=== PATIENT | male | born 1990 | race Hispanic/Latino ===

== ENCOUNTER 2018-01-17 10:10 | Emergency (ER) | payer OTHER ==
[2018-01-17 10:59] LABS: BASOPHILS % (AUTO) 0.6 % (0.0-5.0); EOSINOPHILS % (AUTO) 1.9 % (0.0-8.0); HEMATOCRIT 32.3 % (42-54); LYMPHOCYTES % (AUTO) 15.6 % (21.0-51.0); MEAN CORPUSCULAR HEMOGLOBIN 27.9 pg (27.0-33.0); MEAN CORPUSCULAR HGB CONC 33.6 g/dL (32.0-36.0); MEAN CORPUSCULAR VOLUME 83.2 fL (79-99); MONOCYTES % (AUTO) 7.4 % (3.0-13.0); NEUTROPHILS % (AUTO) 74.5 % (40.0-77.0); NUCLEATED RED BLOOD CELLS 0.1 % (0.0-0.19); PLATELET COUNT (AUTO) 240 K/uL (130-400); RED BLOOD CELL COUNT(AUTO) 3.88 MIL/uL (4.50-6.20); RED CELL DISTRIBUTION WIDTH 13.5 % (11.0-15.5); WHITE BLOOD COUNT (AUTO) 9.7 K/uL (4.8-10.8)
[2018-01-17 11:25] LABS: B-TYPE NATRIURETIC PEPTIDE 149 pg/mL (0-100)
[2018-01-17 11:39] LABS: POTASSIUM 4.2 mmol/L (3.5-5.1)
[2018-01-17 11:44] LABS: ALBUMIN 2.8 g/dL (3.5-5.0); BILIRUBIN,DIRECT 0.1 mg/dL (0.0-0.3); BILIRUBIN,TOTAL 0.5 mg/dL (0.2-1.0); TOTAL PROTEIN, SERUM 7.2 g/dL (6.0-8.3)
[2018-01-17 12:07] LABS: APPEARANCE,URINE Clear (CLEAR); BILIRUBIN,URINE Negative (NEGATIVE); COLOR,URINE Yellow (YELLOW); GLUCOSE, URINE (UA) Negative (NEGATIVE); KETONES,URINE Trace mg/dL (NEGATIVE); LEUKOCYTE ESTERASE ,URINE Negative (NEGATIVE); NITRATE,URINE Negative (NEGATIVE); OCCULT BLOOD,URINE Trace (NEGATIVE); PH,URINE 6.5 (5.0-8.0); PROTEIN,URINE Negative (NEGATIVE); UROBILINOGEN,URINE 0.2 mg/dL (0.2-1.0)
[2018-01-17 12:14] LABS: AMPHET/METH SCREEN,URINE NEGATIVE (NEGATIVE); BARBITURATE SCREEN, URINE NEGATIVE (NEGATIVE); BENZODIAZEPINES SCREEN,URINE NEGATIVE (NEGATIVE); CANNABINOID SCREEN,URINE NEGATIVE (NEGATIVE); COCAINE SCREEN,URINE NEGATIVE (NEGATIVE); OPIATE SCREEN,URINE NEGATIVE (NEGATIVE); PHENCYCLIDINE SCREEN,URINE NEGATIVE (NEGATIVE)
[2018-01-17 12:24] LABS: RBC,URINE 0-1 /HPF (0-1); WBC,URINE 0-1 /HPF (0-1)
[2018-01-17 12:25] LABS: BACTERIA,URINE Rare /HPF (None Seen)
[2018-01-17 12:26] LABS: SQUAMOUS EPITHELIAL CELL,UR Rare /HPF (0-2)
[2018-01-17 13:25] LABS: CREATINE KINASE MB < 0.5 ng/mL (0.5-3.6); CREATINE KINASE, TOTAL 62 U/L (21-232)
== END 2018-01-17 15:16 | disposition home or self-care (01) ==
LOC: EDH 10:10
DX: R60.0 Localized edema (principal); R63.4 Abnormal weight loss; R61 Generalized hyperhidrosis; I38 Endocarditis, valve unspecified
CPT/HCPCS: 36415; 71046; 74176; 80048; 80076; 80305; 81001; 82550; 82553; 83880; 84484; 85025; 93005; 93970

== ENCOUNTER 2018-02-03 10:00 | Inpatient (IN) | payer OTHER ==
[~2018-02-03] VITALS: Ht 177.8 cm; Wt 99.2 kg
[2018-02-03] MEDS: CEFUROXIME SODIUM 1.5 GM VIAL IVP SCH (10:30)
[2018-02-03] MEDS ORDERED: WATER FOR INJECTION,STERILE 20 ML VIAL IJ SCH (11:15)
[2018-02-03 12:01] VITALS: BP 129/60
[2018-02-03 12:06] LABS: BASOPHILS % (AUTO) 0.3 % (0.0-5.0); EOSINOPHILS % (AUTO) 2.1 % (0.0-8.0); HEMATOCRIT 38.8 % (42-54); LYMPHOCYTES % (AUTO) 15.3 % (21.0-51.0); MEAN CORPUSCULAR HEMOGLOBIN 28.5 pg (27.0-33.0); MEAN CORPUSCULAR HGB CONC 33.6 g/dL (32.0-36.0); MEAN CORPUSCULAR VOLUME 84.7 fL (79-99); MONOCYTES % (AUTO) 8.9 % (3.0-13.0); NEUTROPHILS % (AUTO) 73.4 % (40.0-77.0); PLATELET COUNT (AUTO) 204 K/uL (130-400); RED BLOOD CELL COUNT(AUTO) 4.58 MIL/uL (4.50-6.20); RED CELL DISTRIBUTION WIDTH 15.2 % (11.0-15.5); WHITE BLOOD COUNT (AUTO) 10.8 K/uL (4.8-10.8)
[2018-02-03 12:14] LABS: HEMOGLOBIN A1C 5.2 % (4.0-6.0)
[2018-02-03 12:18] LABS: PARTIAL THROMBOPLASTIN TIME 31.1 SEC (26.3-35.5); PROTHROMBIN TIME 10.5 SEC (9.6-11.6)
[2018-02-03 12:23] LABS: ALBUMIN 3.6 g/dL (3.5-5.0); BILIRUBIN,TOTAL 0.5 mg/dL (0.2-1.0); CREATININE 0.9 mg/dL (0.5-1.5); POTASSIUM 4.6 mmol/L (3.5-5.1)
[2018-02-04] VITALS (16 sets, daily range): BP systolic 36–154; BP diastolic 24–58
[2018-02-04] MEDS ORDERED: CEFUROXIME 1.5GM+NS 100ML 100 ML IV SCH ×2 (06:00→23:45)
[2018-02-04] MEDS ORDERED: SODIUM CHLORIDE 0.9% 1000ML 1,000 ML IV ONE ×2 (10:28→15:24)
[2018-02-04] MEDS ORDERED: THROMBIN-JMI 5000 UNIT/VIAL TP ONE ×2 (11:15→22:25)
[2018-02-04] MEDS ORDERED: POTASSIUM CHLORIDE 20MEQ/100ML 100 ML IV ONE (11:16)
[2018-02-04] MEDS ORDERED: DELNIDO FORMULA 2 BAG IV ONE (11:16)
[2018-02-04] MEDS ORDERED: NOREPINEPHRINE BITARTRATE 1 MG/1 ML ML IV ONE ×2 (11:21→12:29)
[2018-02-04] MEDS ORDERED: CALCIUM CHLORIDE 100 MG/ML 10 ML SYG IVP ONE ×2 (12:00)
[2018-02-04] MEDS ORDERED: SODIUM BICARB 8.4% 50ML SYRINGE IVP ONE ×2 (12:00)
[2018-02-04] MEDS ORDERED: ALBUMIN (HUMAN) 25% 50 ML IV ONE (12:00)
[2018-02-04] MEDS ORDERED: HEPARIN SODIUM 1000UNIT/ML 10ML VIAL IV ONE ×2 (12:00)
[2018-02-04] MEDS ORDERED: MANNITOL 25% 50ML VIAL IV ONE (12:00)
[2018-02-04] MEDS ORDERED: GLYCOPYRROLATE 0.2 MG/ML 5 ML VIAL ONE (12:28)
[2018-02-04] MEDS ORDERED: PROTAMINE SULFATE 10 MG/ML 25ML VIAL IV ONE (12:28)
[2018-02-04] MEDS ORDERED: LIDOCAINE PF 2% 5ML ABBOJECT ONE (12:28)
[2018-02-04] MEDS ORDERED: ESMOLOL HCL 10 MG/ML 10 ML VIAL ONE (12:28)
[2018-02-04] MEDS ORDERED: HEPARIN SODIUM 1000UNIT/ML 10ML VIAL ONE (12:29)
[2018-02-04] MEDS ORDERED: PROPOFOL 10 MG/ML 20ML VIAL IV ONE (12:29)
[2018-02-04] MEDS ORDERED: MIDAZOLAM HCL 1 MG/ML 5ML VIAL ONE ×3 (12:29→22:32)
[2018-02-04] MEDS ORDERED: MILRINONE-D5W 20 MG/100 ML 0 ML IV ONE (12:29)
[2018-02-04] MEDS ORDERED: AMINOCAPROIC ACID 250 MG/ML 20 ML VIAL IV ONE (12:29)
[2018-02-04] MEDS ORDERED: ROCURONIUM BROMIDE 10MG/1ML 5ML VL ONE (12:29)
[2018-02-04] MEDS ORDERED: EPINEPHRINE 1 MG/ML AMPULE ONE (12:29)
[2018-02-04] MEDS ORDERED: NEOSTIGMINE 5MG/5ML SYR IV ONE (12:29)
[2018-02-04 13:04] LABS: ABG BASE EXCESS -0.4 mmol/L (-2.0-3.0); ABG HCO3 23.3 mmol/L (21.0-28.0); ABG OXYGEN SATURATION 99.7 % (95.0-99.0); ABG PCO2 35 mmHg (35-48)
[2018-02-04] MEDS: CEFUROXIME SODIUM 1.5 GM VIAL IVP SCH ×2 (13:30→23:45)
[2018-02-04 14:50] LABS: ABG BASE EXCESS -3.3 mmol/L (-2.0-3.0); ABG HCO3 22.1 mmol/L (21.0-28.0); ABG PCO2 41 mmHg (35-48)
[2018-02-04] MEDS ORDERED: METHYLPREDNISOLONE SOD SUCC 1,000 MG/8 ML ML IV ONE (15:09)
[2018-02-04] MEDS ORDERED: OCTYL 2-CYANOACRYLATE 1 EACH TP ONE (15:18)
[2018-02-04] MEDS ORDERED: BACITRACIN 50,000 UNIT VIAL ONE (15:19)
[2018-02-04 15:22] LABS: ABG BASE EXCESS -5.1 mmol/L (-2.0-3.0); ABG HCO3 20.4 mmol/L (21.0-28.0); ABG OXYGEN SATURATION 99.4 % (95.0-99.0); ABG PCO2 39 mmHg (35-48)
[2018-02-04] MEDS ORDERED: SODIUM CHLORIDE 0.9% 500ML 500 ML IV SCH (15:42)
[2018-02-04] MEDS ORDERED: HYDROCODONE/ACETAMINOPHEN 5/325 MG TAB PO PRN (15:45)
[2018-02-04] MEDS ORDERED: NITROGLYCERIN 50 MG/D5% WATER 250 BOT IV SCH (15:45)
[2018-02-04] MEDS ORDERED: MAGNESIUM 2GM PREMIX 50ML 50 ML IV PRN (15:45)
[2018-02-04] MEDS ORDERED: EPINEPHRINE 2 MG in SODIUM CHLORIDE 0.9% 250 ML IV PRN (15:45)
[2018-02-04] MEDS ORDERED: POTASSIUM PHOS 15 mMOL+NS250ML 250 ML IV PRN (15:45)
[2018-02-04] MEDS ORDERED: CALCIUM GLUCONATE 1 GM in SODIUM CHLORIDE 0.9% 50 ML IV PRN (15:45)
[2018-02-04] MEDS ORDERED: GLUCAGON 1MG KIT 1 MG ML IM PRN (15:45)
[2018-02-04] MEDS ORDERED: ACETAMINOPHEN 650 MG SUPPOSITORY RC PRN (15:45)
[2018-02-04] MEDS ORDERED: AMINOCAPROIC ACID 15,000 MG in SODIUM CHLORIDE 0.9% 250 ML IV SCH (15:45)
[2018-02-04] MEDS ORDERED: PROPOFOL 1000 MG/100 ML 100 ML IV PRN (15:45)
[2018-02-04] MEDS ORDERED: ALBUMIN (HUMAN) 5% 250 ML IV PRN (15:45)
[2018-02-04] MEDS ORDERED: SODIUM BICARB 8.4% 50ML SYRINGE IV PRN (15:45)
[2018-02-04] MEDS ORDERED: SODIUM CHLORIDE 0.9% 10 ML VIAL IVP PRN (15:45)
[2018-02-04] MEDS ORDERED: INSULIN REGULAR, HUMAN 3ML 100 UNIT in SODIUM CHLORIDE 0.9% 99 ML IV SCH ×2 (15:45)
[2018-02-04] MEDS ORDERED: SODIUM CHLORIDE 0.9% 1000ML 1,000 ML IV SCH (15:45)
[2018-02-04] MEDS ORDERED: SODIUM CHLORIDE 0.9% 250 ML IV PRN (15:45)
[2018-02-04] MEDS ORDERED: MORPHINE SULFATE 4 MG/1ML SYG IV PRN (15:45)
[2018-02-04] MEDS ORDERED: NICARDIPINE HCL 100 MG in SODIUM CHLORIDE 0.9% 100 ML IV PRN (15:45)
[2018-02-04] MEDS ORDERED: ROPIVACAINE HCL/PF 0.5% 100ML BOTTLE IV ONE (16:00)
[2018-02-04] MEDS ORDERED: FENTANYL CITRATE PF 50 MCG/1 ML 5ML AMP IV ONE (16:22)
[2018-02-04] MEDS ORDERED: MORPHINE SULFATE 10 MG/ML 1ML SYG ONE (16:22)
[2018-02-04 16:27] LABS: ABG HCO3 21.8 mmol/L (21.0-28.0); ABG OXYGEN SATURATION 99.4 % (95.0-99.0); ABG PCO2 34 mmHg (35-48)
[2018-02-04] MEDS: AMBU PUMP 1 EACH EACH MISC SCH (17:23)
[2018-02-04 17:24] LABS: HEMATOCRIT 34.8 % (42-54); MEAN CORPUSCULAR HEMOGLOBIN 27.5 pg (27.0-33.0); MEAN CORPUSCULAR HGB CONC 32.6 g/dL (32.0-36.0); MEAN CORPUSCULAR VOLUME 84.4 fL (79-99); PLATELET COUNT (AUTO) 145 K/uL (130-400); RED BLOOD CELL COUNT(AUTO) 4.13 MIL/uL (4.50-6.20); RED CELL DISTRIBUTION WIDTH 14.8 % (11.0-15.5); WHITE BLOOD COUNT (AUTO) 28.2 K/uL (4.8-10.8)
[2018-02-04] MEDS: MORPHINE SULFATE 4 MG/1ML SYG IV PRN (17:33)
[2018-02-04 17:35] LABS: CREATININE 1.1 mg/dL (0.5-1.5); MAGNESIUM 2.1 mg/dL (1.80-2.40); PHOSPHORUS 4.1 mg/dL (2.5-4.9); POTASSIUM 3.2 mmol/L (3.5-5.1)
[2018-02-04 17:39] LABS: ABG BASE EXCESS -4.4 mmol/L (-2.0-3.0); ABG HCO3 20.8 mmol/L (21.0-28.0); ABG OXYGEN SATURATION 99.2 % (95.0-99.0); ABG PCO2 39 mmHg (35-48)
[2018-02-04] MEDS: POTASSIUM CHLORIDE 20MEQ/100ML 100 ML IV PRN ×3 (18:03→23:25)
[2018-02-04] MEDS ORDERED: SODIUM BICARB 50MEQ 50ML VIAL ONE ×5 (19:10→22:42)
[2018-02-04 20:56] LABS: ABG BASE EXCESS -2.4 mmol/L (-2.0-3.0); ABG PCO2 37 mmHg (35-48)
[2018-02-04 21:37] LABS: ABG BASE EXCESS -2.3 mmol/L (-2.0-3.0); ABG HCO3 22.1 mmol/L (21.0-28.0); ABG OXYGEN SATURATION 98.3 % (95.0-99.0); ABG PCO2 37 mmHg (35-48)
[2018-02-04 21:55] LABS: HEMATOCRIT 33.1 % (42-54); LYMPHOCYTES % (AUTO) 5.1 % (21.0-51.0); MEAN CORPUSCULAR HEMOGLOBIN 27.5 pg (27.0-33.0); MEAN CORPUSCULAR HGB CONC 32.6 g/dL (32.0-36.0); MEAN CORPUSCULAR VOLUME 84.2 fL (79-99); MONOCYTES % (AUTO) 2.4 % (3.0-13.0); NEUTROPHILS % (AUTO) 92.5 % (40.0-77.0); PLATELET COUNT (AUTO) 145 K/uL (130-400); RED BLOOD CELL COUNT(AUTO) 3.92 MIL/uL (4.50-6.20); RED CELL DISTRIBUTION WIDTH 14.8 % (11.0-15.5); WHITE BLOOD COUNT (AUTO) 21.7 K/uL (4.8-10.8)
[2018-02-04 22:07] LABS: CREATININE 1.5 mg/dL (0.5-1.5); INR 1.15 (0.85-1.15); PARTIAL THROMBOPLASTIN TIME 30.3 SEC (26.3-35.5); POTASSIUM 3.8 mmol/L (3.5-5.1)
[2018-02-04] MEDS ORDERED: VASOPRESSIN 20 UNITS/ML 1ML VIAL ONE (22:10)
[2018-02-04] MEDS ORDERED: SODIUM CHLORIDE 0.9% 100 ML IV ONE (22:10)
[2018-02-04 22:11] LABS: BILIRUBIN,TOTAL 1.3 mg/dL (0.2-1.0); TOTAL PROTEIN, SERUM 6.2 g/dL (6.0-8.3)
[2018-02-04] MEDS ORDERED: HYDROCORTISONE SOD SUCCINATE 100 MG/2 ML VIAL ONE ×2 (22:14)
[2018-02-04] MEDS ORDERED: WATER IV PRN ×2 (22:15→22:30)
[2018-02-04] MEDS ORDERED: VASOPRESSIN IV PRN ×2 (22:15→22:30)
[2018-02-04] MEDS ORDERED: HYDROCORTISONE SOD SUCCINATE 100 MG/2 ML VIAL IV SCH (22:15)
[2018-02-04] MEDS ORDERED: DEXTROSE 5% IV PRN ×2 (22:15→22:30)
[2018-02-04] MEDS ORDERED: DELNIDO FORMULA 1 BAG IV ONE (22:25)
[2018-02-04 23:02] LABS: ABG BASE EXCESS -4.7 mmol/L (-2.0-3.0); ABG HCO3 21.2 mmol/L (21.0-28.0); ABG OXYGEN SATURATION 98.9 % (95.0-99.0); ABG PCO2 42 mmHg (35-48)
[2018-02-04 23:39] LABS: ABG BASE EXCESS -20.5 mmol/L (-2.0-3.0); ABG HCO3 9.2 mmol/L (21.0-28.0); ABG PCO2 36 mmHg (35-48)
[2018-02-04 23:53] LABS: ABG BASE EXCESS -8.4 mmol/L (-2.0-3.0); ABG HCO3 15.7 mmol/L (21.0-28.0); ABG OXYGEN SATURATION 98.9 % (95.0-99.0); ABG PCO2 28 mmHg (35-48)
[2018-02-05] VITALS (40 sets, daily range): BP systolic 66–129; BP diastolic 37–76
[2018-02-05] MEDS ORDERED: OCTYL 2-CYANOACRYLATE 1 EACH TP ONE (00:02)
[2018-02-05] MEDS ORDERED: BACITRACIN 50,000 UNIT VIAL ONE ×2 (00:02→14:05)
[2018-02-05] MEDS ORDERED: ROCURONIUM BROMIDE 10MG/1ML 5ML VL ONE ×2 (00:10→03:07)
[2018-02-05 00:17] LABS: ABG BASE EXCESS -15.8 mmol/L (-2.0-3.0); ABG HCO3 13.2 mmol/L (21.0-28.0); ABG OXYGEN SATURATION 99.3 % (95.0-99.0); ABG PCO2 43 mmHg (35-48)
[2018-02-05] MEDS ORDERED: SODIUM BICARB 8.4% 50ML SYRINGE ONE ×5 (00:20→02:42)
[2018-02-05] MEDS ORDERED: PROTAMINE SULFATE 10 MG/ML 5 ML VIAL ONE ×2 (00:35→05:26)
[2018-02-05 00:46] LABS: ABG BASE EXCESS 7.4 mmol/L (-2.0-3.0); ABG HCO3 35.8 mmol/L (21.0-28.0); ABG OXYGEN SATURATION 98.8 % (95.0-99.0); ABG PCO2 71 mmHg (35-48)
[2018-02-05 00:51] LABS: ABG BASE EXCESS -11.5 mmol/L (-2.0-3.0); ABG HCO3 14.7 mmol/L (21.0-28.0); ABG OXYGEN SATURATION 99.1 % (95.0-99.0); ABG PCO2 34 mmHg (35-48)
[2018-02-05] MEDS ORDERED: MAGNESIUM SULFATE 1 GM/2 ML VIAL ONE (00:54)
[2018-02-05] MEDS ORDERED: EPHEDRINE SULFATE 50 MG/ML AMPULE ONE (01:27)
[2018-02-05] MEDS ORDERED: NOREPINEPHRINE BITARTRATE 1 MG/1 ML ML IV ONE (01:28)
[2018-02-05 01:30] LABS: ABG BASE EXCESS 7.3 mmol/L (-2.0-3.0); ABG HCO3 32.2 mmol/L (21.0-28.0); ABG OXYGEN SATURATION 98.6 % (95.0-99.0); ABG PCO2 47 mmHg (35-48)
[2018-02-05] MEDS: CEFUROXIME SODIUM 1.5 GM VIAL IVP SCH ×2 (01:30→11:14)
[2018-02-05 01:45] LABS: ABG BASE EXCESS -10.7 mmol/L (-2.0-3.0); ABG HCO3 17.8 mmol/L (21.0-28.0); ABG OXYGEN SATURATION 98.9 % (95.0-99.0); ABG PCO2 51 mmHg (35-48)
[2018-02-05] MEDS ORDERED: FENTANYL CITRATE PF 50 MCG/1 ML 5ML AMP IV ONE (01:55)
[2018-02-05] MEDS ORDERED: MORPHINE SULFATE 10 MG/ML 1ML SYG ONE (01:55)
[2018-02-05] MEDS ORDERED: CEFUROXIME SODIUM 1.5 GM VIAL ONE ×2 (02:06→14:06)
[2018-02-05 02:33] LABS: ABG BASE EXCESS -9.3 mmol/L (-2.0-3.0); ABG HCO3 18.3 mmol/L (21.0-28.0); ABG OXYGEN SATURATION 89.6 % (95.0-99.0); ABG PCO2 47 mmHg (35-48)
[2018-02-05] MEDS ORDERED: SODIUM BICARB 50MEQ 50ML VIAL ONE ×2 (03:04→03:06)
[2018-02-05] MEDS ORDERED: VASOPRESSIN 20 UNITS/ML 1ML VIAL ONE (03:06)
[2018-02-05] MEDS ORDERED: MILRINONE-D5W 20 MG/100 ML 100 ML IV ONE (03:06)
[2018-02-05] MEDS ORDERED: ESMOLOL HCL 10 MG/ML 10 ML VIAL ONE (03:06)
[2018-02-05 03:12] LABS: ABG BASE EXCESS 5.1 mmol/L (-2.0-3.0); ABG HCO3 29.8 mmol/L (21.0-28.0); ABG OXYGEN SATURATION 96.7 % (95.0-99.0); ABG PCO2 45 mmHg (35-48)
[2018-02-05 03:47] LABS: ABG BASE EXCESS -1.1 mmol/L (-2.0-3.0); ABG HCO3 24.8 mmol/L (21.0-28.0); ABG PCO2 47 mmHg (35-48)
[2018-02-05 04:01] LABS: HEMATOCRIT 28.4 % (42-54); MEAN CORPUSCULAR HEMOGLOBIN 28.6 pg (27.0-33.0); MEAN CORPUSCULAR HGB CONC 33.2 g/dL (32.0-36.0); MEAN CORPUSCULAR VOLUME 86.2 fL (79-99); NUCLEATED RED BLOOD CELLS 0.1 % (0.0-0.19); PLATELET COUNT (AUTO) 144 K/uL (130-400); RED CELL DISTRIBUTION WIDTH 15.3 % (11.0-15.5); WHITE BLOOD COUNT (AUTO) 26.1 K/uL (4.8-10.8)
[2018-02-05 04:08] LABS: INR 1.62 (0.85-1.15); PARTIAL THROMBOPLASTIN TIME 49.9 SEC (26.3-35.5); PROTHROMBIN TIME 16.8 SEC (9.6-11.6)
[2018-02-05 04:23] LABS: CREATININE 2.6 mg/dL (0.5-1.5); MAGNESIUM 3.2 mg/dL (1.80-2.40); PHOSPHORUS 3.9 mg/dL (2.5-4.9); POTASSIUM 3.2 mmol/L (3.5-5.1)
[2018-02-05] MEDS: POTASSIUM CHLORIDE 20MEQ/100ML 100 ML IV PRN ×2 (04:30→05:42)
[2018-02-05] MEDS: EPINEPHRINE 8 MG in SODIUM CHLORIDE 0.9% 250 ML IV PRN ×2 (04:31→20:18)
[2018-02-05] MEDS: NOREPINEPHRINE 4MG/NS 250ML 250 ML IV PRN ×3 (04:34→23:11)
[2018-02-05] MEDS ORDERED: PROTAMINE SULFATE 10 MG/ML 5 ML VIAL IVP STA (05:20)
[2018-02-05] MEDS ORDERED: VASOPRESSIN IV PRN (08:00)
[2018-02-05] MEDS ORDERED: WATER IV PRN (08:00)
[2018-02-05] MEDS ORDERED: DEXTROSE 5% IV PRN (08:00)
[2018-02-05] MEDS ORDERED: ALBUMIN (HUMAN) 5% 250 ML IV ONE (08:03)
[2018-02-05 08:06] LABS: ABG BASE EXCESS 4.2 mmol/L (-2.0-3.0); ABG HCO3 29.1 mmol/L (21.0-28.0); ABG OXYGEN SATURATION 99.8 % (95.0-99.0); ABG PCO2 44 mmHg (35-48)
[2018-02-05 08:09] LABS: HEMATOCRIT 27.6 % (42-54); MEAN CORPUSCULAR HEMOGLOBIN 28.3 pg (27.0-33.0); MEAN CORPUSCULAR HGB CONC 33.2 g/dL (32.0-36.0); MEAN CORPUSCULAR VOLUME 85.4 fL (79-99); NUCLEATED RED BLOOD CELLS 0.3 % (0.0-0.19); PLATELET COUNT (AUTO) 136 K/uL (130-400); RED BLOOD CELL COUNT(AUTO) 3.23 MIL/uL (4.50-6.20); RED CELL DISTRIBUTION WIDTH 15.4 % (11.0-15.5)
[2018-02-05 08:26] LABS: CREATININE 3.2 mg/dL (0.5-1.5); POTASSIUM 3.5 mmol/L (3.5-5.1)
[2018-02-05 08:29] LABS: INR 1.56 (0.85-1.15); PROTHROMBIN TIME 16.2 SEC (9.6-11.6)
[2018-02-05] MEDS ORDERED: PANTOPRAZOLE SODIUM 40 MG TABLET.DR PO SCH (09:00)
[2018-02-05] MEDS ORDERED: PROTAMINE SULFATE 10 MG/ML 5 ML VIAL IVP SCH (09:15)
[2018-02-05] MEDS ORDERED: DESMOPRESSIN ACETATE IJ STA (09:37)
[2018-02-05] MEDS ORDERED: SODIUM CHLORIDE 0.9% IJ STA (09:37)
[2018-02-05] MEDS ORDERED: ZOSYN 3.375GM+NS 50ML 50 ML IV SCH (09:41)
[2018-02-05] MEDS: CALCIUM GLUCONATE 1 GM in SODIUM CHLORIDE 0.9% 50 ML IV SCH (09:44)
[2018-02-05] MEDS ORDERED: DESMOPRESSIN ACETATE IJ SCH (09:49)
[2018-02-05] MEDS ORDERED: SODIUM CHLORIDE 0.9% IJ SCH (09:49)
[2018-02-05] MEDS ORDERED: LEVOFLOXACIN 250 MG/D5W 50ML 50 ML IV SCH (10:00)
[2018-02-05] MEDS ORDERED: SODIUM CHLORIDE 0.9% IV SCH (10:00)
[2018-02-05] MEDS ORDERED: DESMOPRESSIN ACETATE IV SCH (10:00)
[2018-02-05] MEDS ORDERED: FUROSEMIDE 10 MG/ML 10ML VIAL IVP SCH (10:30)
[2018-02-05] MEDS: FUROSEMIDE 100 MG in SODIUM CHLORIDE 0.9% 90 ML IV SCH ×3 (10:32→20:17)
[2018-02-05 12:10] LABS: ABG BASE EXCESS 6.8 mmol/L (-2.0-3.0); ABG HCO3 30.8 mmol/L (21.0-28.0); ABG OXYGEN SATURATION 99.5 % (95.0-99.0); ABG PCO2 41 mmHg (35-48)
[2018-02-05 12:18] LABS: HEMATOCRIT 24.5 % (42-54); MEAN CORPUSCULAR HEMOGLOBIN 29.1 pg (27.0-33.0); MEAN CORPUSCULAR HGB CONC 34.4 g/dL (32.0-36.0); MEAN CORPUSCULAR VOLUME 84.8 fL (79-99); NUCLEATED RED BLOOD CELLS 0.2 % (0.0-0.19); PLATELET COUNT (AUTO) 269 K/uL (130-400); RED BLOOD CELL COUNT(AUTO) 2.89 MIL/uL (4.50-6.20); RED CELL DISTRIBUTION WIDTH 14.3 % (11.0-15.5); WHITE BLOOD COUNT (AUTO) 12.7 K/uL (4.8-10.8)
[2018-02-05 12:31] LABS: CREATININE 3.8 mg/dL (0.5-1.5); MAGNESIUM 2.8 mg/dL (1.80-2.40); POTASSIUM 3.9 mmol/L (3.5-5.1)
[2018-02-05 12:35] LABS: INR 1.31 (0.85-1.15); PARTIAL THROMBOPLASTIN TIME 29.5 SEC (26.3-35.5); PROTHROMBIN TIME 13.7 SEC (9.6-11.6)
[2018-02-05] MEDS: AMBU PUMP 1 EACH EACH MISC SCH (12:39)
[2018-02-05] MEDS ORDERED: KETAMINE HCL 100 MG/ML 5ML VIAL IJ ONE (13:35)
[2018-02-05] MEDS ORDERED: HEPARIN SODIUM 1000UNIT/ML 10ML VIAL ONE (13:44)
[2018-02-05] MEDS ORDERED: THROMBIN-JMI 5000 UNIT/VIAL TP ONE (13:44)
[2018-02-05 13:57] LABS: ABG BASE EXCESS 8.6 mmol/L (-2.0-3.0); ABG HCO3 32.5 mmol/L (21.0-28.0); ABG OXYGEN SATURATION 98.9 % (95.0-99.0); ABG PCO2 43 mmHg (35-48)
[2018-02-05] MEDS ORDERED: MIDAZOLAM HCL 1 MG/ML 2ML VIAL ONE (14:10)
[2018-02-05] MEDS ORDERED: COAGULATION FACTOR VIIA RECOMB 1 MG VIAL IV SCH (15:30)
[2018-02-05] MEDS ORDERED: PHARMACY COMMUNICATION MISC SCH (16:15)
[2018-02-05] MEDS ORDERED: CEFEPIME 1GM+NS 50ML 50 ML IV SCH (16:15)
[2018-02-05 16:58] LABS: ABG HCO3 27.3 mmol/L (21.0-28.0); ABG OXYGEN SATURATION 98.2 % (95.0-99.0); ABG PCO2 37 mmHg (35-48)
[2018-02-05 17:04] LABS: HEMATOCRIT 31.7 % (42-54); MEAN CORPUSCULAR HEMOGLOBIN 28.7 pg (27.0-33.0); MEAN CORPUSCULAR HGB CONC 34.8 g/dL (32.0-36.0); MEAN CORPUSCULAR VOLUME 82.5 fL (79-99); NUCLEATED RED BLOOD CELLS 0.2 % (0.0-0.19); PLATELET COUNT (AUTO) 200 K/uL (130-400); RED BLOOD CELL COUNT(AUTO) 3.84 MIL/uL (4.50-6.20); RED CELL DISTRIBUTION WIDTH 16.3 % (11.0-15.5)
[2018-02-05 17:11] LABS: CREATININE 4.4 mg/dL (0.5-1.5); MAGNESIUM 2.6 mg/dL (1.80-2.40); POTASSIUM 4.9 mmol/L (3.5-5.1)
[2018-02-05] MEDS: CEFEPIME HCL 1 GM VIAL IVP SCH (17:53)
[2018-02-05] MEDS: LINEZOLID 600 MG/ISO-OSM 300 ML IV SCH (18:10)
[2018-02-05] MEDS ORDERED: METOLAZONE 2.5 MG TABLET PO SCH (19:00)
[2018-02-05] MEDS ORDERED: MANNITOL 25% 50ML VIAL IV SCH (19:00)
[2018-02-05] MEDS: ACETAMINOPHEN 325 MG TAB PO PRN (22:28)
[2018-02-05] MEDS ORDERED: PROPOFOL 1000 MG/100 ML IV PRN (22:45)
[2018-02-06] VITALS (28 sets, daily range): BP systolic 90–138; BP diastolic 26–72
[2018-02-06] MEDS ORDERED: PROPOFOL 1000 MG/100 ML 100 ML IV ONE (00:17)
[2018-02-06 04:20] LABS: BASOPHILS % (AUTO) 0.1 % (0.0-5.0); HEMATOCRIT 30.4 % (42-54); LYMPHOCYTES % (AUTO) 9.3 % (21.0-51.0); MEAN CORPUSCULAR HEMOGLOBIN 29.6 pg (27.0-33.0); MEAN CORPUSCULAR HGB CONC 35.5 g/dL (32.0-36.0); MEAN CORPUSCULAR VOLUME 83.6 fL (79-99); MONOCYTES % (AUTO) 6.1 % (3.0-13.0); NEUTROPHILS % (AUTO) 84.5 % (40.0-77.0); NUCLEATED RED BLOOD CELLS 0.1 % (0.0-0.19); PLATELET COUNT (AUTO) 126 K/uL (130-400); RED BLOOD CELL COUNT(AUTO) 3.63 MIL/uL (4.50-6.20); RED CELL DISTRIBUTION WIDTH 16.9 % (11.0-15.5); WHITE BLOOD COUNT (AUTO) 22.6 K/uL (4.8-10.8)
[2018-02-06] MEDS: CEFEPIME HCL 1 GM VIAL IVP SCH ×2 (04:23→18:33)
[2018-02-06 04:30] LABS: INR 1.33 (0.85-1.15); PARTIAL THROMBOPLASTIN TIME 28.9 SEC (26.3-35.5); PROTHROMBIN TIME 13.9 SEC (9.6-11.6)
[2018-02-06 05:06] LABS: ABG BASE EXCESS 4.2 mmol/L (-2.0-3.0); ABG HCO3 28.2 mmol/L (21.0-28.0); ABG OXYGEN SATURATION 98.9 % (95.0-99.0); ABG PCO2 40 mmHg (35-48)
[2018-02-06 05:36] LABS: CREATININE 6.4 mg/dL (0.5-1.5); MAGNESIUM 2.4 mg/dL (1.80-2.40); PHOSPHORUS 3.9 mg/dL (2.5-4.9)
[2018-02-06 05:41] LABS: POTASSIUM 6.2 mmol/L (3.5-5.1)
[2018-02-06] MEDS: LINEZOLID 600 MG/ISO-OSM 300 ML IV SCH ×2 (05:44→18:33)
[2018-02-06] MEDS ORDERED: CALCIUM GLUCONATE 1 GM in DEXTROSE 5%-WATER 50 ML IV SCH (06:41)
[2018-02-06] MEDS ORDERED: SODIUM BICARB 8.4% 50ML SYRINGE IVP SCH (06:41)
[2018-02-06] MEDS ORDERED: CALCIUM GLUCONATE 1 GM in SODIUM CHLORIDE 0.9% 50 ML IV SCH (06:41)
[2018-02-06] MEDS ORDERED: SODIUM BICARB 50MEQ 50ML VIAL ONE ×2 (06:55→22:55)
[2018-02-06] MEDS: DEXTROSE 50%-WATER 25 GM/50 ML VIAL IV SCH (06:57)
[2018-02-06] MEDS: CALCIUM GLUCONATE 1 GM in SODIUM CHLORIDE 0.9% 50 ML IV SCH (06:59)
[2018-02-06] MEDS ORDERED: METOLAZONE 2.5 MG TABLET PO ONE (07:00)
[2018-02-06] MEDS: FUROSEMIDE 100 MG in SODIUM CHLORIDE 0.9% 90 ML IV SCH (07:15)
[2018-02-06] MEDS: NOREPINEPHRINE 4MG/NS 250ML 250 ML IV PRN ×2 (07:16→18:34)
[2018-02-06] MEDS: INSULIN HUMULIN R 100 UNIT/ML 3ML IV SCH (07:18)
[2018-02-06] MEDS: FAMOTIDINE/PF 20 MG/2 ML VIAL IV SCH (09:16)
[2018-02-06 10:06] LABS: APPEARANCE,URINE Clear (CLEAR); BILIRUBIN,URINE Negative (NEGATIVE); GLUCOSE, URINE (UA) 250 mg/dL (NEGATIVE); KETONES,URINE Negative (NEGATIVE); LEUKOCYTE ESTERASE ,URINE Trace (NEGATIVE); NITRATE,URINE Negative (NEGATIVE); OCCULT BLOOD,URINE Large (NEGATIVE); PH,URINE >=9.0 (5.0-8.0); PROTEIN,URINE 300 (NEGATIVE)
[2018-02-06 10:08] LABS: COLOR,URINE Orange (YELLOW)
[2018-02-06 10:20] LABS: BACTERIA,URINE Rare /HPF (None Seen); RBC,URINE 0-1 /HPF (0-1); SQUAMOUS EPITHELIAL CELL,UR Few /HPF (0-2); WBC,URINE None Seen /HPF (0-1)
[2018-02-06 10:21] LABS: AMPHET/METH SCREEN,URINE NEGATIVE (NEGATIVE); BARBITURATE SCREEN, URINE NEGATIVE (NEGATIVE); BENZODIAZEPINES SCREEN,URINE POSITIVE (NEGATIVE); CANNABINOID SCREEN,URINE NEGATIVE (NEGATIVE); COCAINE SCREEN,URINE NEGATIVE (NEGATIVE); OPIATE SCREEN,URINE NEGATIVE (NEGATIVE); PHENCYCLIDINE SCREEN,URINE NEGATIVE (NEGATIVE)
[2018-02-06] MEDS: FLUCONAZOLE 200 MG/NS 100 ML 100 ML IV SCH (12:03)
[2018-02-06] MEDS: MORPHINE SULFATE 4 MG/1ML SYG IV PRN (12:20)
[2018-02-06] MEDS: ACETAMINOPHEN 325 MG TAB PO PRN (12:24)
[2018-02-06] MEDS ORDERED: LIDOCAINE HCL 1% MDV 50ML VIAL ONE (13:27)
[2018-02-06] MEDS ORDERED: SODIUM CHLORIDE 0.9% 1000ML 1,000 ML IV PRN (17:15)
[2018-02-06] MEDS ORDERED: ALBUMIN (HUMAN) 25% 100 ML IV PRN (17:15)
[2018-02-06] MEDS ORDERED: 0.9% SODIUM CHLORIDE 250 ML IV BAG IV PRN (17:15)
[2018-02-06] MEDS ORDERED: HEPARIN SODIUM 5000UNIT/ML 1ML VIAL IJ PRN (17:15)
[2018-02-06 18:31] LABS: CHOLESTEROL 116 mg/dL (<200); HDL CHOLESTEROL 30 mg/dL (29-71); LDL DIRECT 47 mg/dL (0-99); TRIGLYCERIDES 218 mg/dL (30-200)
[2018-02-06] MEDS: EPINEPHRINE 8 MG in SODIUM CHLORIDE 0.9% 250 ML IV PRN (18:35)
[2018-02-06 19:01] LABS: ABG BASE EXCESS 2.1 mmol/L (-2.0-3.0); ABG HCO3 27.2 mmol/L (21.0-28.0); ABG PCO2 44 mmHg (35-48)
[2018-02-06 19:17] LABS: % IRON SATURATION 113.7 % (30-44)
[2018-02-06] MEDS ORDERED: NOREPINEPHRINE 4MG/NS 250ML 250 ML IV SCH (19:45)
[2018-02-06 20:38] LABS: ABG BASE EXCESS -0.1 mmol/L (-2.0-3.0); ABG OXYGEN SATURATION 97.5 % (95.0-99.0); ABG PCO2 43 mmHg (35-48)
[2018-02-06 22:19] LABS: ABG BASE EXCESS -2.2 mmol/L (-2.0-3.0); ABG HCO3 23.4 mmol/L (21.0-28.0); ABG OXYGEN SATURATION 98.5 % (95.0-99.0); ABG PCO2 43 mmHg (35-48)
[2018-02-06] MEDS ORDERED: CALCIUM GLUCONATE 1 GM/10 ML VIAL IV ONE (22:55)
[2018-02-07] VITALS (25 sets, daily range): BP systolic 96–135; BP diastolic 52–78
[2018-02-07 00:16] LABS: ABG BASE EXCESS 1.2 mmol/L (-2.0-3.0); ABG HCO3 26.4 mmol/L (21.0-28.0); ABG OXYGEN SATURATION 97.3 % (95.0-99.0); ABG PCO2 44 mmHg (35-48)
[2018-02-07 02:27] LABS: ABG BASE EXCESS 2.6 mmol/L (-2.0-3.0); ABG HCO3 27.5 mmol/L (21.0-28.0); ABG OXYGEN SATURATION 95.1 % (95.0-99.0); ABG PCO2 44 mmHg (35-48)
[2018-02-07 03:17] LABS: BASOPHILS % (AUTO) 0.2 % (0.0-5.0); EOSINOPHILS % (AUTO) 0.1 % (0.0-8.0); HEMATOCRIT 26.7 % (42-54); LYMPHOCYTES % (AUTO) 7.9 % (21.0-51.0); MEAN CORPUSCULAR HEMOGLOBIN 28.1 pg (27.0-33.0); MEAN CORPUSCULAR HGB CONC 32.8 g/dL (32.0-36.0); MEAN CORPUSCULAR VOLUME 85.5 fL (79-99); MONOCYTES % (AUTO) 3.7 % (3.0-13.0); NEUTROPHILS % (AUTO) 88.1 % (40.0-77.0); NUCLEATED RED BLOOD CELLS 0.1 % (0.0-0.19); PLATELET COUNT (AUTO) 62 K/uL (130-400); RED BLOOD CELL COUNT(AUTO) 3.13 MIL/uL (4.50-6.20); RED CELL DISTRIBUTION WIDTH 16.9 % (11.0-15.5); WHITE BLOOD COUNT (AUTO) 29.4 K/uL (4.8-10.8)
[2018-02-07 03:20] LABS: ALBUMIN 2.1 g/dL (3.5-5.0); CREATININE 7.3 mg/dL (0.5-1.5); TOTAL PROTEIN, SERUM 4.6 g/dL (6.0-8.3)
[2018-02-07 03:24] LABS: INR 1.79 (0.85-1.15); PARTIAL THROMBOPLASTIN TIME 33.1 SEC (26.3-35.5); PROTHROMBIN TIME 18.6 SEC (9.6-11.6)
[2018-02-07 03:26] LABS: POTASSIUM 6.1 mmol/L (3.5-5.1)
[2018-02-07] MEDS ORDERED: CALCIUM GLUCONATE 1 GM/10 ML VIAL IV ONE ×2 (04:15→05:36)
[2018-02-07] MEDS ORDERED: SODIUM POLYSTYRENE SULFONATE 15 GM/60 ML ML ONE (04:24)
[2018-02-07] MEDS: DEXTROSE 50%-WATER 50 ML DISP.SYRIN IV PRN (04:25)
[2018-02-07] MEDS: INSULIN HUMULIN R 100 UNIT/ML 3ML IV SCH (04:27)
[2018-02-07] MEDS: CEFEPIME HCL 1 GM VIAL IVP SCH ×2 (05:18→16:58)
[2018-02-07 05:34] LABS: ABG BASE EXCESS -2.1 mmol/L (-2.0-3.0); ABG HCO3 22.8 mmol/L (21.0-28.0); ABG OXYGEN SATURATION 95.1 % (95.0-99.0); ABG PCO2 39 mmHg (35-48)
[2018-02-07] MEDS ORDERED: SODIUM BICARB 50MEQ 50ML VIAL ONE (05:35)
[2018-02-07] MEDS: ONDANSETRON HCL MDV 20ML 2 MG/ML VIAL IV PRN (05:53)
[2018-02-07] MEDS: LINEZOLID 600 MG/ISO-OSM 300 ML IV SCH (06:00)
[2018-02-07 06:03] LABS: CREATINE KINASE MB 76.6 ng/mL (0.5-3.6)
[2018-02-07 06:14] LABS: TROPONIN I 1206.1 ng/mL (0.00-0.06)
[2018-02-07 07:09] LABS: ABG HCO3 23.2 mmol/L (21.0-28.0); ABG OXYGEN SATURATION 95.6 % (95.0-99.0); ABG PCO2 36 mmHg (35-48)
[2018-02-07] MEDS: LEVOFLOXACIN 750 MG/D5W 150 ML 150 ML IV SCH (09:18)
[2018-02-07] MEDS: FAMOTIDINE/PF 20 MG/2 ML VIAL IV SCH (09:18)
[2018-02-07] MEDS: EPINEPHRINE 8 MG in SODIUM CHLORIDE 0.9% 250 ML IV PRN (09:20)
[2018-02-07] MEDS: FUROSEMIDE 100 MG in SODIUM CHLORIDE 0.9% 90 ML IV SCH (09:21)
[2018-02-07] MEDS: LEVETIRACETAM 250 MG TABLET PO SCH ×2 (09:25→21:05)
[2018-02-07 09:42] LABS: HEMATOCRIT 24.4 % (42-54); MEAN CORPUSCULAR HEMOGLOBIN 28.8 pg (27.0-33.0); MEAN CORPUSCULAR HGB CONC 33.4 g/dL (32.0-36.0); MEAN CORPUSCULAR VOLUME 86.3 fL (79-99); NUCLEATED RED BLOOD CELLS 0.5 % (0.0-0.19); RED BLOOD CELL COUNT(AUTO) 2.83 MIL/uL (4.50-6.20); RED CELL DISTRIBUTION WIDTH 16.9 % (11.0-15.5); WHITE BLOOD COUNT (AUTO) 25.5 K/uL (4.8-10.8)
[2018-02-07 09:48] LABS: POTASSIUM 5.5 mmol/L (3.5-5.1)
[2018-02-07 09:49] LABS: INR 1.65 (0.85-1.15); PARTIAL THROMBOPLASTIN TIME 32.9 SEC (26.3-35.5); PROTHROMBIN TIME 17.2 SEC (9.6-11.6)
[2018-02-07 09:51] LABS: CREATININE 7.9 mg/dL (0.5-1.5)
[2018-02-07 09:52] LABS: PLATELET COUNT (AUTO) 83 K/uL (130-400)
[2018-02-07] MEDS: FLUCONAZOLE 200 MG/NS 100 ML 100 ML IV SCH (12:34)
[2018-02-07] MEDS ORDERED: PHARMACY COMMUNICATION MISC SCH (13:15)
[2018-02-07] MEDS ORDERED: COMPOUND IV REFRIGERATED 1 EACH IVSOLN MISC PRN (15:15)
[2018-02-07] MEDS ORDERED: HEPARIN SODIUM 5000UNIT/ML 1ML VIAL IJ PRN (15:30)
[2018-02-07] MEDS: DAPTOMYCIN 1,000 MG in SODIUM CHLORIDE 0.9% 100 ML IV SCH (16:57)
[2018-02-08] VITALS (23 sets, daily range): BP systolic 88–127; BP diastolic 51–79
[2018-02-08 03:56] LABS: HEMATOCRIT 25.9 % (42-54); MEAN CORPUSCULAR HEMOGLOBIN 29.3 pg (27.0-33.0); MEAN CORPUSCULAR HGB CONC 33.8 g/dL (32.0-36.0); MEAN CORPUSCULAR VOLUME 86.7 fL (79-99); NUCLEATED RED BLOOD CELLS 0.5 % (0.0-0.19); PLATELET COUNT (AUTO) 51 K/uL (130-400); RED BLOOD CELL COUNT(AUTO) 2.99 MIL/uL (4.50-6.20); RED CELL DISTRIBUTION WIDTH 16.2 % (11.0-15.5); WHITE BLOOD COUNT (AUTO) 22.8 K/uL (4.8-10.8)
[2018-02-08 04:21] LABS: BAND NEUTROPHILS % (MANUAL) 3 % (0-2); LYMPHOCYTES % (MANUAL) 6 % (22-44); MAN.DIFF COMMENT-IMPRESSION MANUAL DIFFERENTIAL; METAMYELOCYTES % 1 % (0-0); MONOCYTES % (MANUAL) 2 % (2-9); SEGMENTED NEUTROPHILS % 88 % (40-70)
[2018-02-08 04:22] LABS: PLATELET MORPHOLOGY COMMENT DECREASED
[2018-02-08 04:23] LABS: ALBUMIN 2.4 g/dL (3.5-5.0); CREATININE 7.5 mg/dL (0.5-1.5); TOTAL PROTEIN, SERUM 5.2 g/dL (6.0-8.3)
[2018-02-08 05:10] LABS: POTASSIUM 6.3 mmol/L (3.5-5.1)
[2018-02-08] MEDS: CEFEPIME HCL 1 GM VIAL IVP SCH ×2 (05:13→22:35)
[2018-02-08 05:37] LABS: ABG BASE EXCESS -0.7 mmol/L (-2.0-3.0); ABG HCO3 22.9 mmol/L (21.0-28.0); ABG OXYGEN SATURATION 92.7 % (95.0-99.0); ABG PCO2 34 mmHg (35-48)
[2018-02-08] MEDS ORDERED: CALCIUM GLUCONATE 1 GM/10 ML VIAL IV ONE (05:44)
[2018-02-08] MEDS ORDERED: SODIUM BICARB 50MEQ 50ML VIAL ONE (05:44)
[2018-02-08] MEDS: DEXTROSE 50%-WATER 25 GM/50 ML VIAL IV SCH (05:50)
[2018-02-08] MEDS: INSULIN HUMULIN R 100 UNIT/ML 3ML IV SCH (05:56)
[2018-02-08] MEDS: LEVETIRACETAM 250 MG TABLET PO SCH ×2 (08:56→22:52)
[2018-02-08] MEDS: FAMOTIDINE/PF 20 MG/2 ML VIAL IV SCH (08:57)
[2018-02-08] MEDS: SODIUM POLYSTYRENE SULFONATE 15 GM/60 ML ML PO SCH (08:57)
[2018-02-08] MEDS: ONDANSETRON HCL MDV 20ML 2 MG/ML VIAL IV PRN (09:06)
[2018-02-08] MEDS ORDERED: PHARMACY COMMUNICATION MISC SCH (11:45)
[2018-02-08] MEDS: SODIUM CHLORIDE 0.9% 1000ML 1,000 ML IV SCH ×2 (14:59→15:15)
[2018-02-08] MEDS: FUROSEMIDE 100 MG in SODIUM CHLORIDE 0.9% 90 ML IV SCH (16:52)
[2018-02-08] MEDS ORDERED: SODIUM BICARB 50MEQ 50ML VIAL IV STA (19:06)
[2018-02-08] MEDS ORDERED: DEXTROSE 50%-WATER 50 ML DISP.SYRIN IV SCH (19:15)
[2018-02-08] MEDS ORDERED: INSULIN HUMULIN R 100 UNIT/ML 3ML IV SCH (19:15)
[2018-02-08] MEDS ORDERED: LIDOCAINE 2G/250ML 250 ML IV SCH (19:30)
[2018-02-08 19:35] LABS: MAGNESIUM 2.4 mg/dL (1.80-2.40)
[2018-02-08 19:36] LABS: POTASSIUM 7.8 mmol/L (3.5-5.1)
[2018-02-08 19:37] LABS: CREATININE 9.2 mg/dL (0.5-1.5)
[2018-02-08] MEDS: FLUCONAZOLE 200 MG/NS 100 ML 100 ML IV SCH (22:37)
[2018-02-09] VITALS (23 sets, daily range): BP systolic 97–122; BP diastolic 48–77
[2018-02-09 04:43] LABS: MEAN CORPUSCULAR HEMOGLOBIN 28.8 pg (27.0-33.0); MEAN CORPUSCULAR HGB CONC 33.5 g/dL (32.0-36.0); MEAN CORPUSCULAR VOLUME 85.9 fL (79-99); NUCLEATED RED BLOOD CELLS 1.3 % (0.0-0.19); PLATELET COUNT (AUTO) 34 K/uL (130-400); RED BLOOD CELL COUNT(AUTO) 2.91 MIL/uL (4.50-6.20); RED CELL DISTRIBUTION WIDTH 16.1 % (11.0-15.5); WHITE BLOOD COUNT (AUTO) 21.5 K/uL (4.8-10.8)
[2018-02-09 05:04] LABS: BAND NEUTROPHILS % (MANUAL) 8 % (0-2); LYMPHOCYTES % (MANUAL) 7 % (22-44); MAN.DIFF COMMENT-IMPRESSION MANUAL DIFFERENTIAL; MONOCYTES % (MANUAL) 5 % (2-9); PLATELET MORPHOLOGY COMMENT MARKED DECREASED; SEGMENTED NEUTROPHILS % 80 % (40-70)
[2018-02-09 05:05] LABS: ALBUMIN 2.3 g/dL (3.5-5.0); BILIRUBIN,TOTAL 4.7 mg/dL (0.2-1.0); CREATININE 7.7 mg/dL (0.5-1.5); TOTAL PROTEIN, SERUM 4.9 g/dL (6.0-8.3)
[2018-02-09 05:11] LABS: POTASSIUM 7.1 mmol/L (3.5-5.1)
[2018-02-09] MEDS ORDERED: SODIUM POLYSTYRENE SULFONATE 15 GM/60 ML ML PO SCH (05:45)
[2018-02-09] MEDS ORDERED: INSULIN HUMULIN R 100 UNIT/ML 3ML IV SCH (05:45)
[2018-02-09] MEDS ORDERED: CALCIUM GLUCONATE 1 GM/10 ML VIAL IV ONE (05:50)
[2018-02-09] MEDS ORDERED: SODIUM CHLORIDE 0.9% 100 ML IV ONE (05:55)
[2018-02-09] MEDS: CALCIUM GLUCONATE 1 GM in SODIUM CHLORIDE 0.9% 50 ML IV SCH (05:57)
[2018-02-09] MEDS: SODIUM POLYSTYRENE SULFONATE 15 GM/60 ML ML PO SCH (05:59)
[2018-02-09] MEDS: SODIUM CHLORIDE 0.9% 1000ML 1,000 ML IV SCH ×3 (06:00→21:23)
[2018-02-09 06:16] LABS: HEPATITIS Bs ANTIGEN SCREEN P Negative (Negative)
[2018-02-09] MEDS: DEXTROSE 50%-WATER 50 ML DISP.SYRIN IV PRN (06:24)
[2018-02-09] MEDS: METOPROLOL TARTRATE 25 MG TAB PO SCH ×2 (09:49→21:21)
[2018-02-09] MEDS: PANTOPRAZOLE SODIUM 40 MG TABLET.DR PO SCH (09:49)
[2018-02-09] MEDS: LEVOFLOXACIN 750 MG/D5W 150 ML 150 ML IV SCH (09:49)
[2018-02-09] MEDS: FAMOTIDINE/PF 20 MG/2 ML VIAL IV SCH (09:49)
[2018-02-09] MEDS: CEFEPIME HCL 1 GM VIAL IVP SCH ×2 (09:49→17:19)
[2018-02-09] MEDS: LEVETIRACETAM 250 MG TABLET PO SCH ×2 (09:49→21:21)
[2018-02-09 10:51] LABS: CREATINE KINASE MB 41.4 ng/mL (0.5-3.6)
[2018-02-09 10:53] LABS: TROPONIN I 283.06 ng/mL (0.00-0.06)
[2018-02-09] MEDS: FLUCONAZOLE 200 MG/NS 100 ML 100 ML IV SCH (13:52)
[2018-02-09 15:12] LABS: CREATININE 5.5 mg/dL (0.5-1.5); POTASSIUM 4.9 mmol/L (3.5-5.1)
[2018-02-09] MEDS: DAPTOMYCIN 1,000 MG in SODIUM CHLORIDE 0.9% 100 ML IV SCH (15:25)
[2018-02-09] MEDS: FUROSEMIDE 100 MG in SODIUM CHLORIDE 0.9% 90 ML IV SCH (17:18)
[2018-02-10] VITALS (26 sets, daily range): BP systolic 92–133; BP diastolic 53–78
[2018-02-10] MEDS: SODIUM CHLORIDE 0.9% 1000ML 1,000 ML IV SCH ×2 (00:35→16:12)
[2018-02-10] MEDS: CEFEPIME HCL 1 GM VIAL IVP SCH ×2 (04:33→16:11)
[2018-02-10 04:45] LABS: HEMATOCRIT 23.7 % (42-54); MEAN CORPUSCULAR HEMOGLOBIN 30.2 pg (27.0-33.0); MEAN CORPUSCULAR HGB CONC 34.7 g/dL (32.0-36.0); MEAN CORPUSCULAR VOLUME 87.2 fL (79-99); NUCLEATED RED BLOOD CELLS 1.4 % (0.0-0.19); PLATELET COUNT (AUTO) 47 K/uL (130-400); RED BLOOD CELL COUNT(AUTO) 2.72 MIL/uL (4.50-6.20); RED CELL DISTRIBUTION WIDTH 16.5 % (11.0-15.5); WHITE BLOOD COUNT (AUTO) 20.4 K/uL (4.8-10.8)
[2018-02-10 04:53] LABS: INR 1.85 (0.85-1.15); PARTIAL THROMBOPLASTIN TIME 32.5 SEC (26.3-35.5); PROTHROMBIN TIME 19.2 SEC (9.6-11.6)
[2018-02-10 05:22] LABS: CREATINE KINASE MB 35.7 ng/mL (0.5-3.6); CREATININE 6.8 mg/dL (0.5-1.5); POTASSIUM 4.9 mmol/L (3.5-5.1)
[2018-02-10] MEDS ORDERED: SODIUM CHLORIDE 0.9% 1000ML 1,000 ML IV PRN ×2 (06:00→06:45)
[2018-02-10] MEDS ORDERED: ALBUMIN (HUMAN) 25% 100 ML IV PRN ×2 (06:00→06:45)
[2018-02-10] MEDS ORDERED: 0.9% SODIUM CHLORIDE 250 ML IV BAG IV PRN ×2 (06:00→06:45)
[2018-02-10 06:09] LABS: TROPONIN I 141.93 ng/mL (0.00-0.06)
[2018-02-10] MEDS ORDERED: PHYTONADIONE 10 MG/1 ML AMP SQ SCH (07:30)
[2018-02-10] MEDS: FAMOTIDINE/PF 20 MG/2 ML VIAL IV SCH (09:00)
[2018-02-10] MEDS ORDERED: CARVEDILOL 3.125 MG TABLET PO SCH (09:00)
[2018-02-10] MEDS: METOPROLOL TARTRATE 25 MG TAB PO SCH ×2 (09:59→21:25)
[2018-02-10] MEDS: LEVETIRACETAM 250 MG TABLET PO SCH ×2 (09:59→21:22)
[2018-02-10] MEDS: PANTOPRAZOLE SODIUM 40 MG TABLET.DR PO SCH (09:59)
[2018-02-10] MEDS: FLUCONAZOLE 200 MG/NS 100 ML 100 ML IV SCH (12:39)
[2018-02-10] MEDS: ONDANSETRON HCL MDV 20ML 2 MG/ML VIAL IV PRN (23:20)
[2018-02-11] VITALS (13 sets, daily range): BP systolic 101–140; BP diastolic 54–84
[2018-02-11 04:47] LABS: MEAN CORPUSCULAR HEMOGLOBIN 28.8 pg (27.0-33.0); MEAN CORPUSCULAR HGB CONC 32.7 g/dL (32.0-36.0); NUCLEATED RED BLOOD CELLS 2.7 % (0.0-0.19); PLATELET COUNT (AUTO) 40 K/uL (130-400); RED BLOOD CELL COUNT(AUTO) 3.07 MIL/uL (4.50-6.20); RED CELL DISTRIBUTION WIDTH 17.2 % (11.0-15.5); WHITE BLOOD COUNT (AUTO) 19.6 K/uL (4.8-10.8)
[2018-02-11 04:59] LABS: INR 1.87 (0.85-1.15); PARTIAL THROMBOPLASTIN TIME 34.2 SEC (26.3-35.5); PROTHROMBIN TIME 19.4 SEC (9.6-11.6)
[2018-02-11 05:19] LABS: ALBUMIN 2.2 g/dL (3.5-5.0); BILIRUBIN,DIRECT 3.8 mg/dL (0.0-0.3); CREATININE 6.6 mg/dL (0.5-1.5); POTASSIUM 4.5 mmol/L (3.5-5.1)
[2018-02-11] MEDS: CEFEPIME HCL 1 GM VIAL IVP SCH ×2 (06:56→16:16)
[2018-02-11] MEDS: PANTOPRAZOLE SODIUM 40 MG TABLET.DR PO SCH (08:38)
[2018-02-11] MEDS: LEVOFLOXACIN 750 MG/D5W 150 ML 150 ML IV SCH (08:38)
[2018-02-11] MEDS: FAMOTIDINE/PF 20 MG/2 ML VIAL IV SCH (08:39)
[2018-02-11] MEDS: SODIUM CHLORIDE 0.9% 1000ML 1,000 ML IV SCH (08:39)
[2018-02-11] MEDS: LEVETIRACETAM 250 MG TABLET PO SCH ×2 (08:39→20:08)
[2018-02-11] MEDS: METOPROLOL TARTRATE 25 MG TAB PO SCH ×2 (08:39→20:08)
[2018-02-11] MEDS ORDERED: FUROSEMIDE 10 MG/ML 4ML VIAL IV SCH (09:00)
[2018-02-11] MEDS: FLUCONAZOLE 200 MG/NS 100 ML 100 ML IV SCH (13:16)
[2018-02-12 03:34] VITALS: BP 108/76
[2018-02-12 04:08] LABS: HEMATOCRIT 26.7 % (42-54); MEAN CORPUSCULAR HEMOGLOBIN 29.9 pg (27.0-33.0); MEAN CORPUSCULAR HGB CONC 34.2 g/dL (32.0-36.0); MEAN CORPUSCULAR VOLUME 87.5 fL (79-99); NUCLEATED RED BLOOD CELLS 3.1 % (0.0-0.19); PLATELET COUNT (AUTO) 36 K/uL (130-400); RED BLOOD CELL COUNT(AUTO) 3.05 MIL/uL (4.50-6.20); RED CELL DISTRIBUTION WIDTH 17.3 % (11.0-15.5)
[2018-02-12 04:20] LABS: POTASSIUM 4.2 mmol/L (3.5-5.1)
[2018-02-12 04:26] LABS: CREATININE 8.7 mg/dL (0.5-1.5)
[2018-02-12] MEDS: CEFEPIME HCL 1 GM VIAL IVP SCH ×2 (04:39→16:19)
[2018-02-12 07:00] VITALS: BP 116/76
[2018-02-12] MEDS: FAMOTIDINE/PF 20 MG/2 ML VIAL IV SCH (08:05)
[2018-02-12] MEDS: LEVETIRACETAM 250 MG TABLET PO SCH ×2 (08:05→20:13)
[2018-02-12] MEDS: PANTOPRAZOLE SODIUM 40 MG TABLET.DR PO SCH (08:05)
[2018-02-12] MEDS: METOPROLOL TARTRATE 25 MG TAB PO SCH ×2 (08:05→21:19)
[2018-02-12] MEDS: DAPTOMYCIN 1,000 MG in SODIUM CHLORIDE 0.9% 100 ML IV SCH (08:10)
[2018-02-12 11:52] VITALS: BP 110/78
[2018-02-12] MEDS: FLUCONAZOLE 200 MG/NS 100 ML 100 ML IV SCH (13:23)
[2018-02-12 16:00] VITALS: BP 104/74
[2018-02-12 19:26] VITALS: BP 115/70
[2018-02-12] MEDS: HEPARIN SODIUM 5000UNIT/ML 1ML VIAL IJ PRN (20:16)
[2018-02-12 23:01] VITALS: BP 116/77
[2018-02-13 03:15] VITALS: BP 119/84
[2018-02-13 04:22] LABS: HEMATOCRIT 29.4 % (42-54); MEAN CORPUSCULAR HEMOGLOBIN 29.4 pg (27.0-33.0); MEAN CORPUSCULAR HGB CONC 33.3 g/dL (32.0-36.0); MEAN CORPUSCULAR VOLUME 88.4 fL (79-99); NUCLEATED RED BLOOD CELLS 3.1 % (0.0-0.19); PLATELET COUNT (AUTO) 48 K/uL (130-400); RED BLOOD CELL COUNT(AUTO) 3.32 MIL/uL (4.50-6.20); RED CELL DISTRIBUTION WIDTH 17.2 % (11.0-15.5)
[2018-02-13 04:27] LABS: ALBUMIN 2.2 g/dL (3.5-5.0); BILIRUBIN,TOTAL 4.1 mg/dL (0.2-1.0); CREATININE 7.2 mg/dL (0.5-1.5); POTASSIUM 3.8 mmol/L (3.5-5.1); TOTAL PROTEIN, SERUM 5.3 g/dL (6.0-8.3); WHITE BLOOD COUNT (AUTO) 31.7 K/uL (4.8-10.8)
[2018-02-13 04:32] LABS: BAND NEUTROPHILS % (MANUAL) 21 % (0-2); EOSINOPHILS % (MANUAL) 1 % (1-6); LYMPHOCYTES % (MANUAL) 11 % (22-44); METAMYELOCYTES % 2 % (0-0); MONOCYTES % (MANUAL) 9 % (2-9); SEGMENTED NEUTROPHILS % 56 % (40-70)
[2018-02-13 04:33] LABS: MAN.DIFF COMMENT-IMPRESSION MANUAL DIFFERENTIAL
[2018-02-13] MEDS: CEFEPIME HCL 1 GM VIAL IVP SCH ×2 (05:29→16:51)
[2018-02-13 07:00] VITALS: BP 114/78
[2018-02-13] MEDS: HYDROCODONE/ACETAMINOPHEN 5/325 MG TAB PO PRN (07:32)
[2018-02-13] MEDS: PANTOPRAZOLE SODIUM 40 MG TABLET.DR PO SCH (09:08)
[2018-02-13] MEDS: LEVETIRACETAM 250 MG TABLET PO SCH ×2 (09:09→20:12)
[2018-02-13] MEDS: METOPROLOL TARTRATE 25 MG TAB PO SCH ×2 (09:09→20:12)
[2018-02-13] MEDS: FAMOTIDINE/PF 20 MG/2 ML VIAL IV SCH (09:09)
[2018-02-13] MEDS: LEVOFLOXACIN 750 MG/D5W 150 ML 150 ML IV SCH (09:11)
[2018-02-13 11:00] VITALS: BP 108/75
[2018-02-13] MEDS: FLUCONAZOLE 200 MG/NS 100 ML 100 ML IV SCH (11:18)
[2018-02-13] MEDS: DAPTOMYCIN 1,000 MG in SODIUM CHLORIDE 0.9% 100 ML IV SCH (15:49)
[2018-02-13 16:00] VITALS: BP 120/85
[2018-02-13 19:18] VITALS: BP 117/84
[2018-02-13 23:19] VITALS: BP 118/86
[2018-02-14] MEDS: HYDROCODONE/ACETAMINOPHEN 5/325 MG TAB PO PRN (00:27)
[2018-02-14 02:55] VITALS: BP 110/81
[2018-02-14 04:18] LABS: HEMATOCRIT 26.5 % (42-54); MEAN CORPUSCULAR HEMOGLOBIN 29.6 pg (27.0-33.0); MEAN CORPUSCULAR HGB CONC 33.2 g/dL (32.0-36.0); MEAN CORPUSCULAR VOLUME 89.1 fL (79-99); NUCLEATED RED BLOOD CELLS 2.8 % (0.0-0.19); PLATELET COUNT (AUTO) 50 K/uL (130-400); RED BLOOD CELL COUNT(AUTO) 2.97 MIL/uL (4.50-6.20); RED CELL DISTRIBUTION WIDTH 17.5 % (11.0-15.5)
[2018-02-14 04:22] LABS: WHITE BLOOD COUNT (AUTO) 30.6 K/uL (4.8-10.8)
[2018-02-14 04:37] LABS: BAND NEUTROPHILS % (MANUAL) 11 % (0-2); EOSINOPHILS % (MANUAL) 3 % (1-6); LYMPHOCYTES % (MANUAL) 8 % (22-44); MAN.DIFF COMMENT-IMPRESSION MANUAL DIFFERENTIAL; METAMYELOCYTES % 3 % (0-0); MONOCYTES % (MANUAL) 6 % (2-9); SEGMENTED NEUTROPHILS % 69 % (40-70)
[2018-02-14 04:38] LABS: PLATELET MORPHOLOGY COMMENT DECREASED
[2018-02-14 04:57] LABS: MAGNESIUM 2.2 mg/dL (1.80-2.40); POTASSIUM 3.9 mmol/L (3.5-5.1); TOTAL PROTEIN, SERUM 5.3 g/dL (6.0-8.3)
[2018-02-14] MEDS: CEFEPIME HCL 1 GM VIAL IVP SCH ×2 (05:01→16:52)
[2018-02-14 05:03] LABS: CREATININE 9.1 mg/dL (0.5-1.5)
[2018-02-14 07:00] VITALS: BP 115/81
[2018-02-14] MEDS: PANTOPRAZOLE SODIUM 40 MG TABLET.DR PO SCH (08:24)
[2018-02-14] MEDS: METOPROLOL TARTRATE 25 MG TAB PO SCH ×2 (08:24→20:30)
[2018-02-14] MEDS: LEVETIRACETAM 250 MG TABLET PO SCH ×2 (08:24→20:30)
[2018-02-14] MEDS: FAMOTIDINE/PF 20 MG/2 ML VIAL IV SCH (08:31)
[2018-02-14] MEDS: FLUCONAZOLE 200 MG/NS 100 ML 100 ML IV SCH (09:02)
[2018-02-14 11:00] VITALS: BP 116/76
[2018-02-14 16:00] VITALS: BP 114/70
[2018-02-14] MEDS: FUROSEMIDE 10 MG/ML 4ML VIAL IV SCH (18:21)
[2018-02-14] MEDS: IPRATROPIUM/ALBUTEROL SULFATE 3 ML SOLUTION IH SCH ×2 (18:27→23:55)
[2018-02-14 19:53] VITALS: BP 111/75
[2018-02-15] VITALS (7 sets, daily range): BP systolic 100–115; BP diastolic 63–80
[2018-02-15] MEDS: CEFEPIME HCL 1 GM VIAL IVP SCH ×2 (04:27→16:13)
[2018-02-15 04:49] LABS: BASOPHILS % (AUTO) 0.2 % (0.0-5.0); EOSINOPHILS % (AUTO) 0.4 % (0.0-8.0); HEMATOCRIT 25.3 % (42-54); LYMPHOCYTES % (AUTO) 7.1 % (21.0-51.0); MEAN CORPUSCULAR HEMOGLOBIN 31.9 pg (27.0-33.0); MEAN CORPUSCULAR HGB CONC 35.5 g/dL (32.0-36.0); MEAN CORPUSCULAR VOLUME 89.8 fL (79-99); MONOCYTES % (AUTO) 3.4 % (3.0-13.0); NEUTROPHILS % (AUTO) 88.9 % (40.0-77.0); NUCLEATED RED BLOOD CELLS 1.5 % (0.0-0.19); PLATELET COUNT (AUTO) 59 K/uL (130-400); RED BLOOD CELL COUNT(AUTO) 2.82 MIL/uL (4.50-6.20); RED CELL DISTRIBUTION WIDTH 17.8 % (11.0-15.5); WHITE BLOOD COUNT (AUTO) 28.2 K/uL (4.8-10.8)
[2018-02-15 05:18] LABS: ALBUMIN 1.8 g/dL (3.5-5.0); BILIRUBIN,TOTAL 2.5 mg/dL (0.2-1.0); POTASSIUM 4.8 mmol/L (3.5-5.1); TOTAL PROTEIN, SERUM 5.2 g/dL (6.0-8.3)
[2018-02-15 05:45] LABS: CREATININE 10.5 mg/dL (0.5-1.5)
[2018-02-15] MEDS: IPRATROPIUM/ALBUTEROL SULFATE 3 ML SOLUTION IH SCH ×3 (06:46→19:28)
[2018-02-15] MEDS: HEPARIN SODIUM 5000UNIT/ML 1ML VIAL IJ PRN (08:48)
[2018-02-15] MEDS: METOPROLOL TARTRATE 25 MG TAB PO SCH ×2 (09:00→21:11)
[2018-02-15] MEDS: FAMOTIDINE/PF 20 MG/2 ML VIAL IV SCH (09:00)
[2018-02-15] MEDS: FLUCONAZOLE 200 MG/NS 100 ML 100 ML IV SCH (16:13)
[2018-02-15] MEDS: LEVOFLOXACIN 750 MG/D5W 150 ML 150 ML IV SCH (16:13)
[2018-02-15] MEDS: LEVETIRACETAM 250 MG TABLET PO SCH ×2 (16:14→21:11)
[2018-02-15] MEDS: PANTOPRAZOLE SODIUM 40 MG TABLET.DR PO SCH (16:14)
[2018-02-15] MEDS: DAPTOMYCIN 1,000 MG in SODIUM CHLORIDE 0.9% 100 ML IV SCH (16:30)
[2018-02-15] MEDS: FUROSEMIDE 10 MG/ML 4ML VIAL IV SCH (18:15)
[2018-02-16] MEDS: IPRATROPIUM/ALBUTEROL SULFATE 3 ML SOLUTION IH SCH ×5 (00:04→23:03)
[2018-02-16 03:46] VITALS: BP 117/73
[2018-02-16] MEDS: CEFEPIME HCL 1 GM VIAL IVP SCH ×2 (04:20→15:00)
[2018-02-16 05:16] LABS: HEMATOCRIT 24.9 % (42-54); MEAN CORPUSCULAR HEMOGLOBIN 31.6 pg (27.0-33.0); MEAN CORPUSCULAR HGB CONC 34.6 g/dL (32.0-36.0); MEAN CORPUSCULAR VOLUME 91.5 fL (79-99); NUCLEATED RED BLOOD CELLS 0.6 % (0.0-0.19); PLATELET COUNT (AUTO) 72 K/uL (130-400); RED BLOOD CELL COUNT(AUTO) 2.72 MIL/uL (4.50-6.20); RED CELL DISTRIBUTION WIDTH 17.9 % (11.0-15.5); WHITE BLOOD COUNT (AUTO) 25.2 K/uL (4.8-10.8)
[2018-02-16 05:22] LABS: BAND NEUTROPHILS % (MANUAL) 2 % (0-2); BASOPHILS % (MANUAL) 2 % (0-2); EOSINOPHILS % (MANUAL) 2 % (1-6); LYMPHOCYTES % (MANUAL) 5 % (22-44); MONOCYTES % (MANUAL) 11 % (2-9); SEGMENTED NEUTROPHILS % 78 % (40-70)
[2018-02-16 05:23] LABS: MAN.DIFF COMMENT-IMPRESSION MANUAL DIFFERENTIAL; PLATELET MORPHOLOGY COMMENT DECREASED
[2018-02-16 05:44] LABS: ALBUMIN 1.7 g/dL (3.5-5.0); BILIRUBIN,TOTAL 2.4 mg/dL (0.2-1.0); POTASSIUM 4.3 mmol/L (3.5-5.1); TOTAL PROTEIN, SERUM 5.2 g/dL (6.0-8.3)
[2018-02-16 05:59] LABS: CREATININE 8.9 mg/dL (0.5-1.5)
[2018-02-16 08:00] VITALS: BP 122/78
[2018-02-16] MEDS: FAMOTIDINE/PF 20 MG/2 ML VIAL IV SCH (09:00)
[2018-02-16] MEDS: METOPROLOL TARTRATE 25 MG TAB PO SCH ×2 (09:00→21:24)
[2018-02-16 11:00] VITALS: BP 114/66
[2018-02-16] MEDS ORDERED: MIDODRINE HCL 5 MG TABLET ONE (13:05)
[2018-02-16] MEDS ORDERED: MIDODRINE HCL 5 MG TABLET PO ONE (14:30)
[2018-02-16] MEDS: LEVETIRACETAM 250 MG TABLET PO SCH ×2 (15:00→21:24)
[2018-02-16] MEDS: FLUCONAZOLE 200 MG/NS 100 ML 100 ML IV SCH (15:00)
[2018-02-16] MEDS: PANTOPRAZOLE SODIUM 40 MG TABLET.DR PO SCH (15:00)
[2018-02-16 16:00] VITALS: BP 129/65
[2018-02-16] MEDS: FUROSEMIDE 10 MG/ML 4ML VIAL IV SCH (18:15)
[2018-02-16 19:32] VITALS: BP 121/79
[2018-02-16 23:34] VITALS: BP 120/98
[2018-02-17 03:33] VITALS: BP 118/83
[2018-02-17 04:51] LABS: HEMATOCRIT 25.5 % (42-54); MEAN CORPUSCULAR HEMOGLOBIN 30.5 pg (27.0-33.0); MEAN CORPUSCULAR HGB CONC 33.2 g/dL (32.0-36.0); MEAN CORPUSCULAR VOLUME 91.7 fL (79-99); NUCLEATED RED BLOOD CELLS 0.2 % (0.0-0.19); PLATELET COUNT (AUTO) 76 K/uL (130-400); RED BLOOD CELL COUNT(AUTO) 2.78 MIL/uL (4.50-6.20); RED CELL DISTRIBUTION WIDTH 19.6 % (11.0-15.5); WHITE BLOOD COUNT (AUTO) 23.8 K/uL (4.8-10.8)
[2018-02-17 04:54] LABS: ALANINE AMINOTRANSFERASE 557 U/L (12-78); ALBUMIN 1.8 g/dL (3.5-5.0); ASPARTATE AMINOTRANSFERASE 366 U/L (10-37); BILIRUBIN,TOTAL 2.7 mg/dL (0.2-1.0); CARBON DIOXIDE 23 mmol/L (21-32); CHLORIDE 96 mmol/L (101-111); GLOMERULAR FILTR. RATE CALC 8 mL/min (>60); GLUCOSE,RANDOM 128 mg/dL (70-105); PHOSPHORUS 8.2 mg/dL (2.5-4.9); POTASSIUM 4.5 mmol/L (3.5-5.1); SODIUM SERUM 134 mmol/L (136-145); TOTAL PROTEIN, SERUM 5.5 g/dL (6.0-8.3)
[2018-02-17 04:58] LABS: AMMONIA < 10 umol/L (11-32)
[2018-02-17 05:00] LABS: CREATININE 8.9 mg/dL (0.5-1.5); UREA NITROGEN, BLOOD 81 mg/dL (7-18)
[2018-02-17] MEDS: CEFEPIME HCL 1 GM VIAL IVP SCH ×2 (05:54→16:23)
[2018-02-17] MEDS: IPRATROPIUM/ALBUTEROL SULFATE 3 ML SOLUTION IH SCH ×3 (06:17→18:19)
[2018-02-17] MEDS: FAMOTIDINE/PF 20 MG/2 ML VIAL IV SCH (07:12)
[2018-02-17] MEDS: FUROSEMIDE 10 MG/ML 4ML VIAL IV SCH (07:12)
[2018-02-17] MEDS: PANTOPRAZOLE SODIUM 40 MG TABLET.DR PO SCH (07:12)
[2018-02-17 08:00] VITALS: BP 140/79
[2018-02-17] MEDS: LEVETIRACETAM 250 MG TABLET PO SCH (10:14)
[2018-02-17] MEDS: METOPROLOL TARTRATE 25 MG TAB PO SCH (10:14)
[2018-02-17] MEDS: LEVOFLOXACIN 750 MG/D5W 150 ML 150 ML IV SCH (10:15)
[2018-02-17] MEDS: FLUCONAZOLE 200 MG/NS 100 ML 100 ML IV SCH (10:15)
[2018-02-17 12:00] VITALS: BP 121/84
[2018-02-17] MEDS: DAPTOMYCIN 1,000 MG in SODIUM CHLORIDE 0.9% 100 ML IV SCH (15:04)
[2018-02-17 16:00] VITALS: BP 109/72
[2018-02-17 19:49] VITALS: BP 115/75
== END 2018-02-17 20:44 | DRG 853 ==
LOC: EDSTATUS 10:00 → DAHIP 02-04 09:24 → 2CV 02-04 16:21 → 2BH 02-06 14:16 → 2CH 02-10 11:06 → 2BH 02-11 13:38 → 2DH 02-11 19:51
PROVIDERS: ADMIT Thoracic Surgery (Cardiothoracic Vascular Surgery); ATTEND Thoracic Surgery (Cardiothoracic Vascular Surgery)
PROC: 30233R1 Transfusion of Nonautologous Platelets into Peripheral Vein, Percutaneous Approach (ICD-10-PCS; 2018-02-04)
PROC: 30233K1 Transfusion of Nonautologous Frozen Plasma into Peripheral Vein, Percutaneous Approach (ICD-10-PCS; 2018-02-04)
PROC: 02RF08Z Replacement of Aortic Valve with Zooplastic Tissue, Open Approach (ICD-10-PCS; principal; 2018-02-04 07:30)
PROC: 5A1221Z Performance of Cardiac Output, Continuous (ICD-10-PCS; 2018-02-04 07:30)
PROC: B246ZZ4 Ultrasonography of Right and Left Heart, Transesophageal (ICD-10-PCS; 2018-02-04 22:00)
PROC: 30233L1 Transfusion of Nonautologous Fresh Plasma into Peripheral Vein, Percutaneous Approach (ICD-10-PCS; 2018-02-04 22:00)
PROC: 30233N1 Transfusion of Nonautologous Red Blood Cells into Peripheral Vein, Percutaneous Approach (ICD-10-PCS; 2018-02-04 22:00)
PROC: 5A1935Z Respiratory Ventilation, Less than 24 Consecutive Hours (ICD-10-PCS; 2018-02-05)
PROC: 5A1D70Z Performance of Urinary Filtration, Intermittent, Less than 6 Hours Per Day (ICD-10-PCS; 2018-02-06)
PROC: 5A1D70Z Performance of Urinary Filtration, Intermittent, Less than 6 Hours Per Day (ICD-10-PCS; 2018-02-07)
PROC: 5A1D70Z Performance of Urinary Filtration, Intermittent, Less than 6 Hours Per Day (ICD-10-PCS; 2018-02-08)
PROC: 5A1D70Z Performance of Urinary Filtration, Intermittent, Less than 6 Hours Per Day (ICD-10-PCS; 2018-02-09)
PROC: 5A1D70Z Performance of Urinary Filtration, Intermittent, Less than 6 Hours Per Day (ICD-10-PCS; 2018-02-10)
PROC: 02HV33Z Insertion of Infusion Device into Superior Vena Cava, Percutaneous Approach (ICD-10-PCS; 2018-02-11)
PROC: 5A1D70Z Performance of Urinary Filtration, Intermittent, Less than 6 Hours Per Day (ICD-10-PCS; 2018-02-12)
PROC: 5A1935Z Respiratory Ventilation, Less than 24 Consecutive Hours (ICD-10-PCS; 2018-02-14)
PROC: 5A1935Z Respiratory Ventilation, Less than 24 Consecutive Hours (ICD-10-PCS; 2018-02-15)
PROC: 5A1D70Z Performance of Urinary Filtration, Intermittent, Less than 6 Hours Per Day (ICD-10-PCS; 2018-02-15)
PROC: 5A1935Z Respiratory Ventilation, Less than 24 Consecutive Hours (ICD-10-PCS; 2018-02-16)
PROC: 5A1D70Z Performance of Urinary Filtration, Intermittent, Less than 6 Hours Per Day (ICD-10-PCS; 2018-02-16)
PROC: 5A1935Z Respiratory Ventilation, Less than 24 Consecutive Hours (ICD-10-PCS; 2018-02-17)
PROC: 5A1D70Z Performance of Urinary Filtration, Intermittent, Less than 6 Hours Per Day (ICD-10-PCS; 2018-02-17)
DX: A41.9 Sepsis, unspecified organism (principal); I60.9 Nontraumatic subarachnoid hemorrhage, unspecified; K72.00 Acute and subacute hepatic failure without coma; N17.0 Acute kidney failure with tubular necrosis; I33.0 Acute and subacute infective endocarditis; R57.0 Cardiogenic shock; D62 Acute posthemorrhagic anemia; E11.22 Type 2 diabetes mellitus with diabetic chronic kidney disease; N18.6 End stage renal disease; I50.31 Acute diastolic (congestive) heart failure; G93.1 Anoxic brain damage, not elsewhere classified; T81.30XA Disruption of wound, unspecified, initial encounter; E87.0 Hyperosmolality and hypernatremia; I42.9 Cardiomyopathy, unspecified; M62.82 Rhabdomyolysis; I35.1 Nonrheumatic aortic (valve) insufficiency; Z95.3 Presence of xenogenic heart valve; B96.89 Other specified bacterial agents as the cause of diseases classified elsewhere; D69.59 Other secondary thrombocytopenia; E11.65 Type 2 diabetes mellitus with hyperglycemia; E66.9 Obesity, unspecified; E87.5 Hyperkalemia; I34.0 Nonrheumatic mitral (valve) insufficiency; I45.10 Unspecified right bundle-branch block; Z79.82 Long term (current) use of aspirin; Z99.2 Dependence on renal dialysis; Z68.34 Body mass index [BMI] 34.0-34.9, adult
CPT/HCPCS: 36415; 36430; 36556; 70450; 71045; 71250; 76700; 76998; 80048; 80053; 80061; 80076; 80305; 81001; 82140; 82330; 82435; 82550; 82553; 82728; 82803; 82947; 82948; 83036; 83540; 83550; 83605; 83735; 83874; 84100; 84132; 84295; 84484; 85007; 85018; 85025; 85027; 85347; 85384; 85610; 85730; 86611; 86622; 86638; 86701; 86704; 86706; 86850; 86900; 86901; 86922; 86927; 87040; 87071; 87106; 87186; 87205; 87340; 87390; 87520; 87804; 88300; 88305; 88311; 90935; 92610; 92950; 93005; 93306; 93318; 93880; 93971; 94002; 94003; 94150; 94640; 94660; 94664; 94667; 94668; 97039; A4218; A4344; A7048; C1725; C1752; J0171; J0610; J0692; J0697; J0878; J1450; J1644; J1720; J1815; J1940; J1956; J2001; J2020; J2150; J2250; J2260; J2270; J2543; J2597; J2704; J2710; J2720; J2795; J2930; J3010; J3430; J3475; J3480; J3490; J7030; J7040; J7060; J7070; J7189; P9012; P9016; P9017; P9034; P9045; P9047

== ENCOUNTER 2018-02-24 05:48 | Inpatient (IN) | payer OTHER ==
[2018-02-24] VITALS (16 sets, daily range): BP systolic 109–126; BP diastolic 71–96
[~2018-02-24] VITALS: Ht 180.3 cm; Wt 76.2 kg
[2018-02-24] MEDS ORDERED: RIFA550T PO (08:29)
[2018-02-24] MEDS ORDERED: CODE10LI PO (08:29)
[2018-02-24] MEDS ORDERED: [UNRECOGNIZED DRUG - CODE] IV (08:29)
[2018-02-24] MEDS ORDERED: CEFE1VIA10 IV (08:29)
[2018-02-24] MEDS ORDERED: [UNRECOGNIZED DRUG - CODE] IV (08:29)
[2018-02-24] MEDS ORDERED: [UNRECOGNIZED DRUG - CODE] SQ (08:29)
[2018-02-24] MEDS ORDERED: DAPT500I IV (08:29)
[2018-02-24] MEDS ORDERED: QUET50TA PO (08:29)
[2018-02-24] MEDS ORDERED: LACT10SO9 PO (08:29)
[2018-02-24] MEDS ORDERED: METO25TA6 PO (08:29)
[2018-02-24] MEDS ORDERED: [UNRECOGNIZED DRUG - CODE] IV (08:29)
[2018-02-24] MEDS ORDERED: ALBU50IV5 IV (08:29)
[2018-02-24] MEDS ORDERED: METH40VI31 IJ (08:29)
[2018-02-24] MEDS ORDERED: [UNRECOGNIZED DRUG - CODE] IH (08:29)
[2018-02-24] MEDS ORDERED: HYDR-4060 PO (08:29)
[2018-02-24] MEDS ORDERED: ALPR-409 PO (08:29)
[2018-02-24] MEDS ORDERED: LEVA0.6312 IH (08:29)
[2018-02-24] MEDS ORDERED: NITR0.4T SL (08:29)
[2018-02-24] MEDS ORDERED: NORE4PLA IV (08:29)
[2018-02-24] MEDS ORDERED: ASPI-1005 PO (08:29)
[2018-02-24] MEDS ORDERED: PANT40SU PO (08:29)
[2018-02-24] MEDS ORDERED: ZIPR20I IM (08:29)
[2018-02-24] MEDS ORDERED: NTP TP (08:29)
[2018-02-24] MEDS ORDERED: [UNRECOGNIZED DRUG - CODE] IVCATH (08:29)
[2018-02-24] MEDS ORDERED: [UNRECOGNIZED DRUG - OTHER] IV PRN (08:45)
[2018-02-24] MEDS ORDERED: CALCIUM GLUCONATE IV PRN (08:45)
[2018-02-24] MEDS ORDERED: SODIUM CHLORIDE 0.9% IV PRN (08:45)
[2018-02-24] MEDS ORDERED: DAPTOMYCIN IV SCH (08:45)
[2018-02-24] MEDS ORDERED: NITROGLYCERIN IV PRN (08:45)
[2018-02-24] MEDS ORDERED: GUAIFENESIN-CODEINE 5 ML SYRUP PO PRN (08:45)
[2018-02-24] MEDS ORDERED: HYDROCODONE/ACETAMINOPHEN 5/325 MG TAB PO PRN (08:45)
[2018-02-24] MEDS ORDERED: NITROGLYCERIN 0.4 MG SL TAB SL PRN (08:45)
[2018-02-24] MEDS ORDERED: DEXTROSE IV PRN (08:45)
[2018-02-24] MEDS ORDERED: EPINEPHRINE IV PRN (08:45)
[2018-02-24] MEDS ORDERED: ALBUMIN (HUMAN) 25% 50 ML IV.SOLN. IV PRN (08:45)
[2018-02-24] MEDS ORDERED: [UNRECOGNIZED DRUG - OTHER] IV PRN (08:45)
[2018-02-24] MEDS ORDERED: ZIPRASIDONE MESYLATE 20 MG/VIAL IM PRN (08:45)
[2018-02-24] MEDS ORDERED: ALPRAZOLAM 0.25 MG TABLET PO PRN (08:45)
[2018-02-24] MEDS ORDERED: DARBEPOETIN ALFA IN POLYSORBAT 40 MCG SQ SCH (09:00)
[2018-02-24] MEDS ORDERED: METHYLPREDNISOLONE SOD SUCC 40MG/ML 1ML IJ SCH ×2 (09:00→09:35)
[2018-02-24] MEDS ORDERED: HEPARIN SODIUM/PF 100UNIT/ML 5ML SYRINGE IV SCH (09:00)
[2018-02-24] MEDS ORDERED: HEPARIN SODIUM 5000UNIT/ML 1ML VIAL IJ PRN (09:30)
[2018-02-24] MEDS ORDERED: NOREPINEPHRINE 4MG/NS 250ML 250 ML IV SCH (09:30)
[2018-02-24] MEDS ORDERED: EPINEPHRINE 2 MG in DEXTROSE 5%-WATER 250 ML IV PRN (09:30)
[2018-02-24] MEDS ORDERED: NITROGLYCERIN 50 MG/D5% WATER 1 BOT IV PRN (09:30)
[2018-02-24] MEDS ORDERED: ALBUMIN (HUMAN) 25% 100 ML IV PRN (09:30)
[2018-02-24 09:47] LABS: ABG BASE EXCESS -2.9 mmol/L (-2.0-3.0); ABG HCO3 20.1 mmol/L (21.0-28.0); ABG OXYGEN SATURATION 96.3 % (95.0-99.0); ABG PCO2 31 mmHg (35-48)
[2018-02-24] MEDS: LACTULOSE 20 GM/30 ML UDCUP PO SCH ×2 (10:54→20:52)
[2018-02-24] MEDS: METOPROLOL TARTRATE 25 MG TAB PO SCH ×2 (10:54→20:51)
[2018-02-24] MEDS: ASPIRIN 81MG TAB.CHEW PO SCH (10:54)
[2018-02-24] MEDS: CEFEPIME HCL 1 GM VIAL IVP SCH (10:54)
[2018-02-24] MEDS: RIFAXIMIN 550 MG TABLET PO SCH ×2 (10:54→20:51)
[2018-02-24] MEDS: ALBUTEROL SULFATE 0.083% 2.5 MG/3 ML INH IH SCH ×3 (11:24→22:58)
[2018-02-24] MEDS ORDERED: EPOETIN ALFA 2,000 UNIT/ML VIAL SQ SCH (11:57)
[2018-02-24] MEDS ORDERED: ACETYLCYSTEINE 20% 200MG/ML 4ML VIAL IH SCH (12:00)
[2018-02-24] MEDS ORDERED: NITROGLYCERIN 30 GM TUBE TP SCH (12:00)
[2018-02-24] MEDS ORDERED: METHYLPREDNISOLONE SOD SUCC 40MG/ML 1ML IVP SCH (12:00)
[2018-02-24] MEDS ORDERED: NITROGLYCERIN 1GM/1 INCH PACKET TD ONE (12:38)
[2018-02-24] MEDS ORDERED: CALCIUM GLUCONATE 1 GM in SODIUM CHLORIDE 0.9% 50 ML IV PRN (13:15)
[2018-02-24] MEDS ORDERED: EPOETIN ALFA 20,000 UNIT/ML VIAL SQ SCH (14:00)
[2018-02-24] MEDS ORDERED: SODIUM CHLORIDE 0.9% 500ML 500 ML IV SCH (15:52)
[2018-02-24] MEDS: NITROGLYCERIN 1GM/1 INCH PACKET TD SCH ×2 (18:00→23:14)
[2018-02-24] MEDS: DAPTOMYCIN 1,000 MG in SODIUM CHLORIDE 0.9% 100 ML IV SCH (19:38)
[2018-02-24] MEDS: PANTOPRAZOLE SODIUM 40 MG TABLET.DR PO SCH (20:51)
[2018-02-24] MEDS ORDERED: QUETIAPINE FUMARATE 25 MG TAB PO SCH (21:00)
[2018-02-24] MEDS: ACETYLCYSTEINE 20% 200MG/ML 4ML VIAL IH SCH (22:58)
[2018-02-24] MEDS: METHYLPREDNISOLONE SOD SUCC 40MG/ML 1ML IVP SCH (23:13)
[2018-02-25] VITALS (29 sets, daily range): BP systolic 105–128; BP diastolic 70–96
[2018-02-25 04:03] LABS: HEMATOCRIT 24.8 % (42-54); MEAN CORPUSCULAR HEMOGLOBIN 31.6 pg (27.0-33.0); MEAN CORPUSCULAR HGB CONC 33.1 g/dL (32.0-36.0); MEAN CORPUSCULAR VOLUME 95.4 fL (79-99); NUCLEATED RED BLOOD CELLS 0.5 % (0.0-0.19); PLATELET COUNT (AUTO) 68 K/uL (130-400); RED CELL DISTRIBUTION WIDTH 24.2 % (11.0-15.5)
[2018-02-25 04:21] LABS: ALBUMIN 3.3 g/dL (3.5-5.0); BILIRUBIN,TOTAL 1.9 mg/dL (0.2-1.0); MAGNESIUM 3.2 mg/dL (1.80-2.40); POTASSIUM 5.1 mmol/L (3.5-5.1); TOTAL PROTEIN, SERUM 6.4 g/dL (6.0-8.3)
[2018-02-25 04:41] LABS: PHOSPHORUS 16.9 mg/dL (2.5-4.9)
[2018-02-25 04:42] LABS: CREATININE 9.1 mg/dL (0.5-1.5)
[2018-02-25 05:10] LABS: BAND NEUTROPHILS % (MANUAL) 2 % (0-2); LYMPHOCYTES % (MANUAL) 7 % (22-44); MAN.DIFF COMMENT-IMPRESSION MANUAL DIFFERENTIAL; MONOCYTES % (MANUAL) 2 % (2-9); PLATELET MORPHOLOGY COMMENT DECREASED; SEGMENTED NEUTROPHILS % 89 % (40-70)
[2018-02-25] MEDS: NITROGLYCERIN 1GM/1 INCH PACKET TD SCH ×3 (06:00→12:00)
[2018-02-25] MEDS: ALBUTEROL SULFATE 0.083% 2.5 MG/3 ML INH IH SCH ×4 (06:11→23:38)
[2018-02-25] MEDS: ACETYLCYSTEINE 20% 200MG/ML 4ML VIAL IH SCH ×4 (06:12→23:37)
[2018-02-25] MEDS ORDERED: SODIUM CHLORIDE 0.9% 1000ML 1,000 ML IV ONE (07:45)
[2018-02-25 07:55] LABS: INR 1.35 (0.85-1.15); PARTIAL THROMBOPLASTIN TIME 31.2 SEC (26.3-35.5); PROTHROMBIN TIME 14.1 SEC (9.6-11.6)
[2018-02-25] MEDS: LACTULOSE 20 GM/30 ML UDCUP PO SCH ×2 (09:00→20:19)
[2018-02-25] MEDS ORDERED: LIDOCAINE HCL 1% 20 ML VIAL ONE (09:48)
[2018-02-25] MEDS ORDERED: IOPAMIDOL-370 100 ML VIAL IV ONE ×2 (09:49→10:39)
[2018-02-25] MEDS ORDERED: NITROGLYCERIN 5 MG/ML 10 ML VIAL IV ONE (09:49)
[2018-02-25] MEDS ORDERED: BIVALIRUDIN 250 MG/VIAL IV ONE (09:49)
[2018-02-25] MEDS ORDERED: ISOVUE-370 50ML VIAL IV ONE (09:49)
[2018-02-25] MEDS: METHYLPREDNISOLONE SOD SUCC 40MG/ML 1ML IVP SCH ×2 (12:05→21:01)
[2018-02-25] MEDS: CEFEPIME HCL 1 GM VIAL IVP SCH (12:05)
[2018-02-25] MEDS: RIFAXIMIN 550 MG TABLET PO SCH ×2 (12:08→20:18)
[2018-02-25] MEDS: ASPIRIN 81MG TAB.CHEW PO SCH (12:08)
[2018-02-25] MEDS: METOPROLOL TARTRATE 25 MG TAB PO SCH ×2 (12:08→20:18)
[2018-02-25] MEDS: PANTOPRAZOLE SODIUM 40 MG TABLET.DR PO SCH (20:18)
[2018-02-26] VITALS (20 sets, daily range): BP systolic 95–156; BP diastolic 42–98
[2018-02-26 03:48] LABS: BASOPHILS % (AUTO) 0.3 % (0.0-5.0); EOSINOPHILS % (AUTO) 0.1 % (0.0-8.0); HEMATOCRIT 26.9 % (42-54); LYMPHOCYTES % (AUTO) 1.7 % (21.0-51.0); MEAN CORPUSCULAR HEMOGLOBIN 32.4 pg (27.0-33.0); MEAN CORPUSCULAR HGB CONC 33.5 g/dL (32.0-36.0); MEAN CORPUSCULAR VOLUME 96.8 fL (79-99); NEUTROPHILS % (AUTO) 94.9 % (40.0-77.0); NUCLEATED RED BLOOD CELLS 0.5 % (0.0-0.19); PLATELET COUNT (AUTO) 74 K/uL (130-400); RED BLOOD CELL COUNT(AUTO) 2.78 MIL/uL (4.50-6.20); RED CELL DISTRIBUTION WIDTH 25.3 % (11.0-15.5); WHITE BLOOD COUNT (AUTO) 10.1 K/uL (4.8-10.8)
[2018-02-26 04:04] LABS: ALBUMIN 3.4 g/dL (3.5-5.0); POTASSIUM 5.6 mmol/L (3.5-5.1); TOTAL PROTEIN, SERUM 6.7 g/dL (6.0-8.3)
[2018-02-26 04:14] LABS: CREATININE 8.2 mg/dL (0.5-1.5)
[2018-02-26 04:32] LABS: B-TYPE NATRIURETIC PEPTIDE > 5000 pg/mL (0-100)
[2018-02-26] MEDS: ALBUTEROL SULFATE 0.083% 2.5 MG/3 ML INH IH SCH ×3 (06:29→18:54)
[2018-02-26] MEDS: ACETYLCYSTEINE 20% 200MG/ML 4ML VIAL IH SCH ×3 (06:29→18:55)
[2018-02-26 07:41] LABS: ABG BASE EXCESS -6.4 mmol/L (-2.0-3.0); ABG HCO3 17.9 mmol/L (21.0-28.0); ABG OXYGEN SATURATION 97.8 % (95.0-99.0); ABG PCO2 32 mmHg (35-48)
[2018-02-26] MEDS ORDERED: SODIUM POLYSTYRENE SULFONATE 15 GM/60 ML ML PO SCH (08:45)
[2018-02-26] MEDS ORDERED: LISINOPRIL 5 MG TABLET PO SCH (09:00)
[2018-02-26] MEDS ORDERED: METOPROLOL TARTRATE 25 MG TAB PO SCH (09:00)
[2018-02-26] MEDS: RIFAXIMIN 550 MG TABLET PO SCH (09:25)
[2018-02-26] MEDS: ASPIRIN 81MG TAB.CHEW PO SCH (09:26)
[2018-02-26] MEDS: METHYLPREDNISOLONE SOD SUCC 40MG/ML 1ML IVP SCH (09:27)
[2018-02-26] MEDS: CEFEPIME HCL 1 GM VIAL IVP SCH (09:27)
[2018-02-26] MEDS ORDERED: LACTULOSE 20 GM/30 ML UDCUP PO PRN (09:30)
[2018-02-26] MEDS ORDERED: ALPRAZOLAM 0.5 MG TABLET PO PRN (15:00)
[2018-02-26] MEDS: DAPTOMYCIN 1,000 MG in SODIUM CHLORIDE 0.9% 100 ML IV SCH (16:47)
[2018-02-26] MEDS ORDERED: EPOETIN ALFA 20,000 UNIT/ML VIAL SQ SCH (21:00)
== END 2018-02-26 20:12 | disposition short-term general hospital (02) | DRG 871 ==
LOC: 2BH 07:54
PROVIDERS: ADMIT Internal Medicine; ATTEND Internal Medicine
PROC: 5A09357 Assistance with Respiratory Ventilation, Less than 24 Consecutive Hours, Continuous Positive Airway Pressure (ICD-10-PCS; 2018-02-24)
PROC: B2111ZZ Fluoroscopy of Multiple Coronary Arteries using Low Osmolar Contrast (ICD-10-PCS; principal; 2018-02-25)
PROC: 4A023N7 Measurement of Cardiac Sampling and Pressure, Left Heart, Percutaneous Approach (ICD-10-PCS; 2018-02-25)
PROC: 5A1D70Z Performance of Urinary Filtration, Intermittent, Less than 6 Hours Per Day (ICD-10-PCS; 2018-02-25)
PROC: 5A09357 Assistance with Respiratory Ventilation, Less than 24 Consecutive Hours, Continuous Positive Airway Pressure (ICD-10-PCS; 2018-02-25)
PROC: 5A09357 Assistance with Respiratory Ventilation, Less than 24 Consecutive Hours, Continuous Positive Airway Pressure (ICD-10-PCS; 2018-02-26)
DX: A41.9 Sepsis, unspecified organism (principal); I21.4 Non-ST elevation (NSTEMI) myocardial infarction; I60.9 Nontraumatic subarachnoid hemorrhage, unspecified; J96.21 Acute and chronic respiratory failure with hypoxia; I33.0 Acute and subacute infective endocarditis; I33.9 Acute and subacute endocarditis, unspecified; N18.6 End stage renal disease; N17.9 Acute kidney failure, unspecified; D69.6 Thrombocytopenia, unspecified; E87.5 Hyperkalemia; K72.00 Acute and subacute hepatic failure without coma; R57.0 Cardiogenic shock; J18.9 Pneumonia, unspecified organism; I50.43 Acute on chronic combined systolic (congestive) and diastolic (congestive) heart failure; R65.21 Severe sepsis with septic shock; I42.9 Cardiomyopathy, unspecified; M62.82 Rhabdomyolysis; Q23.1 Congenital insufficiency of aortic valve; B96.89 Other specified bacterial agents as the cause of diseases classified elsewhere; D63.8 Anemia in other chronic diseases classified elsewhere; E66.9 Obesity, unspecified; I27.20 Pulmonary hypertension, unspecified; R62.7 Adult failure to thrive; Y95 Nosocomial condition; Z74.01 Bed confinement status; Z79.82 Long term (current) use of aspirin; Z95.2 Presence of prosthetic heart valve; Z99.2 Dependence on renal dialysis; Z68.23 Body mass index [BMI] 23.0-23.9, adult
CPT/HCPCS: 36415; 36600; 71045; 80053; 82140; 82803; 83735; 83880; 84100; 85025; 85610; 85730; 90935; 93454; 93567; 93970; 94640; 94660; 94664; A4218; A6234; C1760; C1894; J0583; J0692; J0878; J0885; J1642; J1644; J2920; J3490; J7030; J7040; J7608; Q9967

== ENCOUNTER 2018-10-06 08:32 | Emergency (ER) | payer OTHER ==
[~2018-10-06 08:32] MED LIST: ALBU50IV5 IV; ALPR-409 PO; ASPI-1005 PO; CEFE1VIA10 IV; CODE10LI PO; DAPT500I IV; HYDR-4060 PO; LACT10SO9 PO; LEVA0.6312 IH; METH40VI31 IJ; METO25TA6 PO; NITR0.4T SL; NORE4PLA IV; NTP TP; PANT40SU PO; QUET50TA PO; RIFA550T PO; ZIPR20I IM; [UNRECOGNIZED DRUG - CODE] IH; [UNRECOGNIZED DRUG - CODE] IV; [UNRECOGNIZED DRUG - CODE] IV; [UNRECOGNIZED DRUG - CODE] IV; [UNRECOGNIZED DRUG - CODE] IVCATH; [UNRECOGNIZED DRUG - CODE] SQ
[2018-10-06 09:33] LABS: APPEARANCE,URINE TURBID (CLEAR); BILIRUBIN,URINE MODERATE (NEGATIVE); COLOR,URINE RED (YELLOW); GLUCOSE, URINE (UA) 100 mg/dL (NEGATIVE); KETONES,URINE 5 mg/dL (NEGATIVE); LEUKOCYTE ESTERASE ,URINE TRACE (NEGATIVE); NITRATE,URINE POSITIVE (NEGATIVE); OCCULT BLOOD,URINE LARGE (NEGATIVE); PH,URINE 6.5 (5.0-8.0); PROTEIN,URINE >=300 (NEGATIVE)
[2018-10-06 09:42] LABS: BACTERIA,URINE Rare /HPF (None Seen); RBC,URINE TNTC /HPF (0-1); SQUAMOUS EPITHELIAL CELL,UR Rare /HPF (0-2)
[2018-10-06] MEDS ORDERED: SODIUM CHLORIDE 0.9% 50 ML IV ONE (09:52)
[2018-10-06] MEDS ORDERED: CEFTRIAXONE SODIUM 1 GM ONE (09:52)
[2018-10-06 10:16] LABS: BASOPHILS % (AUTO) 0.6 % (0.0-5.0); EOSINOPHILS % (AUTO) 0.5 % (0.0-8.0); HEMATOCRIT 33.8 % (42-54); LYMPHOCYTES % (AUTO) 13.9 % (21.0-51.0); MEAN CORPUSCULAR HEMOGLOBIN 30.3 pg (27.0-33.0); MEAN CORPUSCULAR HGB CONC 34.1 g/dL (32.0-36.0); MEAN CORPUSCULAR VOLUME 88.8 fL (79-99); MONOCYTES % (AUTO) 5.7 % (3.0-13.0); NEUTROPHILS % (AUTO) 79.3 % (40.0-77.0); PLATELET COUNT (AUTO) 100 K/uL (130-400); RED BLOOD CELL COUNT(AUTO) 3.81 MIL/uL (4.50-6.20); RED CELL DISTRIBUTION WIDTH 15.5 % (11.0-15.5); WHITE BLOOD COUNT (AUTO) 8.1 K/uL (4.8-10.8)
== END 2018-10-06 10:50 | disposition home or self-care (01) ==
LOC: EDH 08:32
DX: N23 Unspecified renal colic (principal); R31.9 Hematuria, unspecified; R11.10 Vomiting, unspecified; N18.6 End stage renal disease; I50.9 Heart failure, unspecified; Z95.4 Presence of other heart-valve replacement; Z98.890 Other specified postprocedural states; Z88.8 Allergy status to other drugs, medicaments and biological substances
CPT/HCPCS: 36415; 74176; 81001; 85025; 87088; 96374; 99284; J0696

== ENCOUNTER 2019-04-29 11:03 | Emergency (ER) | payer OTHER ==
[~2019-04-29 11:03] MED LIST changes: -LEVA0.6312 IH; +LEVA0.6333 IH
[2019-04-29] MEDS ORDERED: ONDANSETRON ODT 4 MG TAB ONE (11:37)
[2019-04-29] MEDS ORDERED: SODIUM CHLORIDE 0.9% 1000ML 1,000 ML IV ONE (11:37)
[2019-04-29 11:38] LABS: BASOPHILS % (AUTO) 0.3 % (0.0-5.0); EOSINOPHILS % (AUTO) 0.4 % (0.0-8.0); HEMATOCRIT 43.4 % (42-54); LYMPHOCYTES % (AUTO) 10.3 % (21.0-51.0); MEAN CORPUSCULAR HEMOGLOBIN 28.4 pg (27.0-33.0); MEAN CORPUSCULAR HGB CONC 32.9 g/dL (32.0-36.0); MEAN CORPUSCULAR VOLUME 86.2 fL (79-99); MONOCYTES % (AUTO) 4.2 % (3.0-13.0); NEUTROPHILS % (AUTO) 84.8 % (40.0-77.0); PLATELET COUNT (AUTO) 102 K/uL (130-400); RED BLOOD CELL COUNT(AUTO) 5.03 MIL/uL (4.50-6.20); RED CELL DISTRIBUTION WIDTH 12.8 % (11.0-15.5); WHITE BLOOD COUNT (AUTO) 11.4 K/uL (4.8-10.8)
[2019-04-29 11:40] LABS: APPEARANCE,URINE Clear (CLEAR); BILIRUBIN,URINE Negative (NEGATIVE); COLOR,URINE Yellow (YELLOW); GLUCOSE, URINE (UA) Negative (NEGATIVE); KETONES,URINE Negative (NEGATIVE); LEUKOCYTE ESTERASE ,URINE Negative (NEGATIVE); NITRATE,URINE Negative (NEGATIVE); OCCULT BLOOD,URINE Nonhemolyzed Trace (NEGATIVE); PROTEIN,URINE Trace mg/dL (NEGATIVE); UROBILINOGEN,URINE 0.2 mg/dL (0.2-1.0)
[2019-04-29 11:53] LABS: BACTERIA,URINE Rare /HPF (None Seen); SQUAMOUS EPITHELIAL CELL,UR Rare /HPF (0-2); WBC,URINE 0-1 /HPF (0-1)
[2019-04-29 11:54] LABS: CREATININE 2.4 mg/dL (0.5-1.5); POTASSIUM 4.4 mmol/L (3.5-5.1)
[2019-04-29 12:03] LABS: ALBUMIN 4.2 g/dL (3.5-5.0); BILIRUBIN,DIRECT 0.1 mg/dL (0.0-0.3); BILIRUBIN,TOTAL 0.4 mg/dL (0.2-1.0); TOTAL PROTEIN, SERUM 7.4 g/dL (6.0-8.3)
== END 2019-04-29 15:55 | disposition home or self-care (01) ==
LOC: EDH 11:03
DX: N18.6 End stage renal disease (principal); I50.9 Heart failure, unspecified; Z88.8 Allergy status to other drugs, medicaments and biological substances
CPT/HCPCS: 36415; 74176; 80048; 80076; 81001; 85025; 99285; J7030